=== PATIENT | female | born 1990 | race Two or more races ===

== ENCOUNTER 2016-12-20 02:24 | Emergency (ER) | payer OTHER ==
[~2016-12-20] VITALS: Ht 152.4 cm; Wt 54.4 kg
--- NOTE | 2016-12-20 02:27 | NUR ---
PT WALKED INTO ER C/O "LUPUS FLARE!", C/O JOINT PAIN, RASH/MOUTH BLISTERS X3 DAYS.. PT IS ALERT, ORIENTED X 3, NO RESP DISTRESS NOTED OR REPORTED UPON ASSESSMENT... MD AT BEDSIDE....
[2016-12-20] MEDS ORDERED: MYCO500T PO (02:40)
[2016-12-20] MEDS ORDERED: HYDR200T PO (02:40)
[2016-12-20] MEDS ORDERED: METHOTREXATE 2.5 MG PO (02:40)
[2016-12-20] MEDS ORDERED: PRED20TA PO (02:40)
[2016-12-20] MEDS ORDERED: methylPREDNISolone SOD SUCC 125 MG/2 ML VIAL IV ONE (03:00)
[2016-12-20] MEDS ORDERED: ONDANSETRON 4 MG/2 ML VIAL IV ONE (03:00)
[2016-12-20] MEDS ORDERED: IV NORMAL SALINE 1000 ML BAG IV ONE (03:00)
[2016-12-20] MEDS ORDERED: HYDROMORPHONE 1 MG/1 ML DISP.SYRIN IV ONE (03:00)
[2016-12-20] MEDS ORDERED: ONDANSETRON 4 MG/2 ML VIAL ONE (03:21)
[2016-12-20] MEDS ORDERED: HYDROMORPHONE 1 MG/1 ML DISP.SYRIN ONE (03:21)
[2016-12-20] MEDS ORDERED: methylPREDNISolone SOD SUCC 125 MG/2 ML VIAL ONE (03:22)
--- NOTE | 2016-12-20 04:45 | NUR ---
Patient discharged to home in stable conditon. Written and verbal after care instructions given. Patient verbalizes understanding of instructions. pt walked out of ER unassisted with beloingings at side...
[2016-12-20 05:07] VITALS: BP 121/82
== END 2016-12-20 04:30 | disposition home or self-care (01) ==
LOC: ER 02:29
DX: L51.9 Erythema multiforme, unspecified (principal); F12.10 Cannabis abuse, uncomplicated
CPT/HCPCS: 36415; 84703; 85651; 96361; 96374; 96375; 99284; A4663; J1170; J2405; J2930; J7030

== ENCOUNTER 2016-12-20 21:02 | Inpatient (IN) | payer OTHER ==
[~2016-12-20] VITALS: Ht 152.4 cm; Wt 53.1 kg
[~2016-12-20 21:02] MED LIST: HYDR200T PO; METHOTREXATE 2.5 MG PO; MYCO500T PO; PRED20TA PO
--- NOTE | 2016-12-20 22:25 | NUR ---
Pt to room, pt sts she has lupus and was seen here yesterday for pain and rash. Sts pain and rash have increased. Pt resting in position of comfort for self. Awaiting further eval.
[2016-12-20] MEDS ORDERED: HYDROMORPHONE 1 MG/1 ML DISP.SYRIN IV ONE (23:15)
[2016-12-20] MEDS ORDERED: ONDANSETRON 4 MG/2 ML VIAL IV ONE (23:15)
[2016-12-20] MEDS ORDERED: ONDANSETRON 4 MG/2 ML VIAL ONE (23:35)
[2016-12-20] MEDS ORDERED: HYDROMORPHONE 1 MG/1 ML DISP.SYRIN ONE (23:35)
--- NOTE | 2016-12-20 23:49 | NUR ---
Pt seen by MD. TALAMANTES established, labs drawn and sent. Pt medicated for pain, will monitor for effects of medication. Pt resting in position of comfort for self
[2016-12-20 23:52] LABS: BASOPHILS % (AUTO) 0.1 % (0.0-2.0); EOSINOPHILS % (AUTO) 0.5 % (0.0-7.0); HEMATOCRIT 30.5 % (37-47); HEMOGLOBIN 10.1 G/DL (12.0-16.0); LYMPHOCYTES # (AUTO) 1.1 K/UL (0.8-4.8); LYMPHOCYTES % (AUTO) 36.9 % (20.5-51.5); MEAN CORPUSCULAR HEMOGLOBIN 28.2 UUG (27.0-31.0); MEAN CORPUSCULAR HGB CONC 33 g/dL (32.0-37.0); MEAN CORPUSCULAR VOLUME 85.1 FL (81.0-99.0); MONOCYTES # (AUTO) 0.4 K/UL (0.1-1.30); MONOCYTES % (AUTO) 12.6 % (0.0-11.0); NEUTROPHILS # (AUTO) 1.5 K/UL (1.8-8.9); NEUTROPHILS % (AUTO) 49.9 % (38.5-71.5); PLATELET COUNT (AUTO) 303 K/UL (150-450); RED BLOOD CELL COUNT(AUTO) 3.58 MIL/UL (4.2-5.4)
[2016-12-20 23:58] LABS: CARBON DIOXIDE 25 mmol/L (21-32); CHLORIDE 105 mmol/L (98-107); CREATININE 0.5 mg/dL (0.6-1.3); GLUCOSE 100 mg/dL (74-106); POTASSIUM 3.8 mmol/L (3.5-5.1); UREA NITROGEN, BLOOD 12 mg/dL (7-18)
[2016-12-21 00:04] LABS: ALANINE AMINOTRANSFERASE 21 U/L (14-59); ALKALINE PHOSPHATASE 43 U/L (50-136); ASPARTATE AMINOTRANSFERASE 16 U/L (15-37); BILIRUBIN,DIRECT 0.1 mg/dL (0.0-0.2); BILIRUBIN,TOTAL 0.3 mg/dL (0.2-1.0); TOTAL PROTEIN, SERUM 7.1 g/dL (6.4-8.2)
--- NOTE | 2016-12-21 00:54 | NUR ---
Pt resting in position of comfort for self. Sts pain improved.
[2016-12-21] MEDS ORDERED: methylPREDNISolone SOD SUCC 125 MG/2 ML VIAL IV ONE (01:15)
[2016-12-21] MEDS ORDERED: MAGNESIUM HYDROXIDE 30 ML LIQUID UDC PO PRN (01:30)
[2016-12-21] MEDS ORDERED: ONDANSETRON 4 MG/2 ML VIAL IV PRN (01:30)
[2016-12-21] MEDS ORDERED: ACETAMINOPHEN 325 MG TABLET PO PRN (01:30)
[2016-12-21] MEDS ORDERED: HYDROMORPHONE 1 MG/1 ML DISP.SYRIN IV ONE (01:30)
[2016-12-21] MEDS ORDERED: ONDANSETRON IV *ER 4 MG/2 ML VIAL IV ONE (01:30)
[2016-12-21] MEDS ORDERED: Z GUARD REMEDY PASTE 57 GM TUBE TOP PRN (01:30)
[2016-12-21] MEDS ORDERED: ONDANSETRON 4 MG/2 ML VIAL ONE (01:52)
[2016-12-21] MEDS ORDERED: HYDROMORPHONE 1 MG/1 ML DISP.SYRIN ONE (01:52)
[2016-12-21] MEDS ORDERED: methylPREDNISolone SOD SUCC 125 MG/2 ML VIAL ONE (01:52)
--- NOTE | 2016-12-21 02:28 | NUR ---
Report called to [facility]. Preparing to transfer pt to the floor.
--- NOTE | 2016-12-21 02:45 | NUR ---
RECEIVED PATIENT FROM ER VIA WHEELCHAIR. PT IS ALERT, NO DISTRESS, NO SOB. DX: LUPUS EXACERBATION UNDER THE CARE OF DR. MCBRIDE. ADMISSION PROCESS STARTED, BELONGING LIST DONE. MD ORDERS IN THE SYSTEM. PLAN OF CARE INITIATED. BED ALARM ON, CALL LIGHT WITHIN REACH. WILL CONTINUE TO MONITOR.
[2016-12-21 03:00] VITALS: BP 125/89
[2016-12-21 04:21] VITALS: BP 113/71
--- NOTE | 2016-12-21 06:45 | NUR ---
PATIENT ASLEEP, EASILY AROUSABLE, IN NO ACUTE DISTRESS. WILL CONTINUE TO MONITOR.
--- NOTE | 2016-12-21 08:00 | NUR ---
AWAKE COOPERATE WELL NO SOB STATE PAIN MED HELP TO RELIEF PAIN RESTINT WELL WITH CALL LIGHT IN REACH
[2016-12-21] MEDS: HYDROXYCHLOROQUINE SULFATE 200 MG TABLET PO SCH (08:25)
[2016-12-21] MEDS: HYDROCODONE/APAP 5-325MG TABLET PO PRN ×2 (08:25→12:45)
[2016-12-21] MEDS ORDERED: methylPREDNISolone SOD SUCC 40 MG/ML VIAL IV SCH (09:00)
[2016-12-21] MEDS ORDERED: METHOTREXATE PO SCH (09:00)
[2016-12-21] MEDS ORDERED: Medication Not On Formulary EA (Mycophenolate Mofetil (Cellcept) 500 MG) PO SCH (09:00)
[2016-12-21 10:54] LABS: BASOPHILS % (AUTO) 0.8 % (0.0-2.0); EOSINOPHILS % (AUTO) 0.2 % (0.0-7.0); HEMATOCRIT 31.9 % (37-47); HEMOGLOBIN 10.3 G/DL (12.0-16.0); LYMPHOCYTES # (AUTO) 0.8 K/UL (0.8-4.8); LYMPHOCYTES % (AUTO) 27.9 % (20.5-51.5); MEAN CORPUSCULAR HEMOGLOBIN 27.3 UUG (27.0-31.0); MEAN CORPUSCULAR HGB CONC 32 g/dL (32.0-37.0); MEAN CORPUSCULAR VOLUME 84.4 FL (81.0-99.0); MONOCYTES # (AUTO) 0.1 K/UL (0.1-1.30); MONOCYTES % (AUTO) 3.3 % (0.0-11.0); NEUTROPHILS % (AUTO) 67.8 % (38.5-71.5); PLATELET COUNT (AUTO) 287 K/UL (150-450); RED BLOOD CELL COUNT(AUTO) 3.78 MIL/UL (4.2-5.4); WHITE BLOOD COUNT (AUTO) 2.9 K/UL (4.0-11.2)
[2016-12-21 11:30] LABS: BAND % (MANUAL) 5 % (0-10); LYMPHOCYTES % (MANUAL) 25 % (20-40); MONOCYTES % (MANUAL) 3 % (2-10); NEUTROPHILS % (MANUAL) 67 % (42-75)
[2016-12-21 11:32] LABS: BILIRUBIN,TOTAL 0.4 mg/dL (0.2-1.0); CREATININE 0.7 mg/dL (0.6-1.3); POTASSIUM 4.1 mmol/L (3.5-5.1); TOTAL PROTEIN, SERUM 6.8 g/dL (6.4-8.2)
[2016-12-21 11:35] LABS: THYROID STIMULATING HORMONE 0.064 mIU/mL (0.358-3.740)
[2016-12-21 11:38] LABS: MAGNESIUM 2.2 mg/dL (1.8-2.4)
[2016-12-21] MEDS: MYCOPHENOLATE MOFETIL 250 MG CAPSULE PO SCH ×2 (11:43→18:09)
[2016-12-21] MEDS: METHOTREXATE SODIUM 2.5 MG TABLET PO SCH (11:44)
[2016-12-21] MEDS: methylPREDNISolone SOD SUCC 125 MG/2 ML VIAL IV SCH ×3 (11:46→21:44)
[2016-12-21 11:55] VITALS: BP 123/82
[2016-12-21] MEDS: PANTOPRAZOLE SODIUM 40 MG TABLET.DR PO SCH (11:56)
[2016-12-21] MEDS: IV D5/ 0.9% NACL 1,000 ML IV PRN (12:47)
[2016-12-21] MEDS ORDERED: HYDROMORPHONE 1 MG/1 ML DISP.SYRIN IV PRN (14:00)
[2016-12-21] MEDS: HYDROMORPHONE 1 MG/1 ML DISP.SYRIN IV PRN (15:18)
[2016-12-21 15:38] VITALS: BP 102/61
--- NOTE | 2016-12-21 18:00 | NUR ---
CONDITION STABLE PAIN UNDER CONTROL NO ACUTE DISTRESS SAFETY MEASURE PROVIDED CALL MARISCAL IN REACH
[2016-12-21 18:14] LABS: *URINE TOTAL PROTEIN RANDOM < 6.0 mg/dL (<150/24HR)
[2016-12-21 18:15] LABS: *BILIRUBIN,URIN NEGATIVE (NEGATIVE); *BLOOD, URINE NEGATIVE (NEGATIVE); *CLARITY,URINE CLEAR (CLEAR); *COLOR,URINE YELLOW (YELLOW); *KETONES,URINE NEGATIVE (NEGATIVE); *PROTEIN,URINE NEGATIVE (NEGATIVE); *UROBILINOGEN,URINE 0.2 E.U./dl (NORMAL); LEUKOCYTE ESTERASE ,URINE NEGATIVE (NEGATIVE); NITRITE, URINE NEGATIVE (NEGATIVE); UGLUCOSE NEGATIVE (NEGATIVE)
[2016-12-21 18:29] LABS: SQUAMOUS EPITHELIAL CELL,UR FEW /HPF (NONE SEEN); WBC,URINE NONE SEEN /HPF (0-3)
--- NOTE | 2016-12-21 19:00 | NUR ---
PATIENT IN BED NO SOB NO CHEST PAIN, ON PAIN MANAGEMENT, NO DISTRESS.
[2016-12-21 20:00] VITALS: BP 110/67
[2016-12-22] MEDS: HYDROMORPHONE 1 MG/1 ML DISP.SYRIN IV PRN ×4 (02:30→21:25)
[2016-12-22] MEDS: IV D5/ 0.9% NACL 1,000 ML IV PRN ×3 (02:42→21:14)
[2016-12-22 05:00] VITALS: BP 95/54
[2016-12-22] MEDS: PANTOPRAZOLE SODIUM 40 MG TABLET.DR PO SCH (06:11)
[2016-12-22] MEDS: methylPREDNISolone SOD SUCC 125 MG/2 ML VIAL IV SCH ×3 (06:11→20:57)
--- NOTE | 2016-12-22 06:52 | NUR ---
PATIENT SLEPT MOST OF THE NIGHT, NO SOB NO CHEST PAIN, CONT ON PAIN MANAGEMENT, CONT TO MONITOR.
[2016-12-22 07:46] LABS: EOSINOPHILS % (AUTO) 0.9 % (0.0-7.0); HEMATOCRIT 31.3 % (37-47); HEMOGLOBIN 10.3 G/DL (12.0-16.0); LYMPHOCYTES # (AUTO) 0.9 K/UL (0.8-4.8); LYMPHOCYTES % (AUTO) 20.1 % (20.5-51.5); MEAN CORPUSCULAR HEMOGLOBIN 28.8 UUG (27.0-31.0); MEAN CORPUSCULAR HGB CONC 33 g/dL (32.0-37.0); MEAN CORPUSCULAR VOLUME 87.3 FL (81.0-99.0); MONOCYTES # (AUTO) 0.2 K/UL (0.1-1.30); MONOCYTES % (AUTO) 4.9 % (0.0-11.0); NEUTROPHILS # (AUTO) 3.6 K/UL (1.8-8.9); NEUTROPHILS % (AUTO) 74.1 % (38.5-71.5); PLATELET COUNT (AUTO) 277 K/UL (150-450); RED BLOOD CELL COUNT(AUTO) 3.58 MIL/UL (4.2-5.4)
[2016-12-22 07:48] LABS: WHITE BLOOD COUNT (AUTO) 4.7 K/UL (4.0-11.2)
[2016-12-22 08:00] LABS: CREATININE 0.6 mg/dL (0.6-1.3); MAGNESIUM 2.2 mg/dL (1.8-2.4); POTASSIUM 3.7 mmol/L (3.5-5.1)
[2016-12-22] MEDS: MYCOPHENOLATE MOFETIL 250 MG CAPSULE PO SCH ×2 (08:34→20:57)
[2016-12-22] MEDS: HYDROXYCHLOROQUINE SULFATE 200 MG TABLET PO SCH (08:35)
[2016-12-22] MEDS: METHOTREXATE SODIUM 2.5 MG TABLET PO SCH (08:38)
[2016-12-22 11:26] VITALS: BP 103/53
[2016-12-22 15:31] VITALS: BP 107/65
[2016-12-22 18:11] LABS: ANTI-DNA(DS) AB, QN 45 IU/mL (0-9)
--- NOTE | 2016-12-22 18:27 | NUR ---
PT AWAKE IN BED, IN NO ACUTE DISTRESS. PAIN MANAGED THROUGHOUT SHIFT WITH PAIN MEDICATION. ALL SAFETY AND COMFORT MEASURES MAINTAINED THROUGHOUT SHIFT CALL LIGHT IN REACH, WILL CONTINUE TO MONITOR
[2016-12-22 20:00] VITALS: BP 105/60
[2016-12-22] MEDS: HYDROCODONE/APAP 5-325MG TABLET PO PRN (20:16)
--- NOTE | 2016-12-22 20:40 | NUR ---
PT'S A/A/O X4 DENIED OF PAIN OR ANY DISCOMFORT AT THIS TIME.PT'S ON IVF MD'S ORDER;NO INFILTRATION AT THE IV SITE NOTED.UPDATED THE PLAN OF CARE TO PT;PT VERBALIZED UNDERSTANDING AND COOPERATIVE.KEPT COMFORT.CALL-LIGHT WITHIN REACH.ICE CHIP'S GIVEN TO PT REQUEST.
[2016-12-23] MEDS: HYDROMORPHONE 1 MG/1 ML DISP.SYRIN IV PRN ×3 (03:15→17:57)
[2016-12-23 05:00] VITALS: BP 113/62
--- NOTE | 2016-12-23 06:00 | NUR ---
PT'S COMFORTABLE ON BED AT THIS TIME.PAIN'S CONTROLLED BY MEDICATION MD'S ORDER.PT SLEPT WELL NOTED.NO INFILTRATION AT THE IV SITE,PT TOLERATED WELL WITH TX ORDER NOTED.KEPT COMFORT.CALL-LIGHT WITHIN REACH.
[2016-12-23] MEDS: PANTOPRAZOLE SODIUM 40 MG TABLET.DR PO SCH (06:24)
[2016-12-23 07:15] LABS: EOSINOPHILS # (AUTO) 0.1 K/uL (0.0-0.7); EOSINOPHILS % (AUTO) 0.8 % (0.0-7.0); HEMATOCRIT 31.4 % (37-47); HEMOGLOBIN 10.4 G/DL (12.0-16.0); LYMPHOCYTES # (AUTO) 1.1 K/UL (0.8-4.8); LYMPHOCYTES % (AUTO) 17.2 % (20.5-51.5); MEAN CORPUSCULAR HEMOGLOBIN 28.8 UUG (27.0-31.0); MEAN CORPUSCULAR HGB CONC 33 g/dL (32.0-37.0); MONOCYTES # (AUTO) 0.3 K/UL (0.1-1.30); MONOCYTES % (AUTO) 4.6 % (0.0-11.0); NEUTROPHILS # (AUTO) 4.9 K/UL (1.8-8.9); NEUTROPHILS % (AUTO) 77.4 % (38.5-71.5); PLATELET COUNT (AUTO) 290 K/UL (150-450); WHITE BLOOD COUNT (AUTO) 6.4 K/UL (4.0-11.2)
[2016-12-23 07:38] LABS: ALANINE AMINOTRANSFERASE 16 U/L (14-59); ALKALINE PHOSPHATASE 40 U/L (50-136); ASPARTATE AMINOTRANSFERASE 11 U/L (15-37); BILIRUBIN,TOTAL 0.1 mg/dL (0.2-1.0); CARBON DIOXIDE 26 mmol/L (21-32); CHLORIDE 108 mmol/L (98-107); CREATININE 0.5 mg/dL (0.6-1.3); GLUCOSE 113 mg/dL (74-106); MAGNESIUM 2.2 mg/dL (1.8-2.4); PHOSPHOROUS 3.9 mg/dL (2.5-4.9); POTASSIUM 3.7 mmol/L (3.5-5.1); TOTAL PROTEIN, SERUM 6.1 g/dL (6.4-8.2); UREA NITROGEN, BLOOD 12 mg/dL (7-18)
[2016-12-23] MEDS: IV D5/ 0.9% NACL 1,000 ML IV PRN (08:43)
[2016-12-23] MEDS: MYCOPHENOLATE MOFETIL 250 MG CAPSULE PO SCH (09:23)
[2016-12-23] MEDS: methylPREDNISolone SOD SUCC 125 MG/2 ML VIAL IV SCH (09:23)
[2016-12-23] MEDS: HYDROXYCHLOROQUINE SULFATE 200 MG TABLET PO SCH (09:25)
[2016-12-23] MEDS: METHOTREXATE SODIUM 2.5 MG TABLET PO SCH (09:25)
[2016-12-23] MEDS ORDERED: HYDROMORPHONE 1 MG/1 ML DISP.SYRIN IV ONE (11:30)
[2016-12-23 11:54] VITALS: BP 114/73
[2016-12-23 15:46] VITALS: BP 108/68
[2016-12-23] MEDS ORDERED: PRED50TA PO (16:55)
[2016-12-23] MEDS ORDERED: HYDR-3326 PO (16:55)
[2016-12-23] MEDS ORDERED: MYCO250C PO (16:55)
[2016-12-23] MEDS ORDERED: FERR325T28 PO (16:55)
--- NOTE | 2016-12-23 18:55 | NUR ---
Patient discharged from unit with family. Photos taken of hands and left ear. No noted distress. Denies pain. Discharge instructions given to patient. Patient understands plan of care. IV removed. Prescriptions given.
[2016-12-23] MEDS ORDERED: FERROUS SULFATE 325 MG TABEC PO SCH (21:00)
== END 2016-12-23 18:55 | disposition home or self-care (01) | DRG 346 ==
LOC: ER 21:04 → MED 12-21 02:20
PROVIDERS: ADMIT Family Medicine; ATTEND Family Medicine
DX: M32.9 Systemic lupus erythematosus, unspecified (principal); D61.818 Other pancytopenia; E88.09 Other disorders of plasma-protein metabolism, not elsewhere classified; F17.210 Nicotine dependence, cigarettes, uncomplicated; L51.8 Other erythema multiforme; D50.9 Iron deficiency anemia, unspecified; G43.909 Migraine, unspecified, not intractable, without status migrainosus; E78.5 Hyperlipidemia, unspecified; R73.9 Hyperglycemia, unspecified; Z98.890 Other specified postprocedural states; D63.8 Anemia in other chronic diseases classified elsewhere; D72.818 Other decreased white blood cell count
CPT/HCPCS: 36415; 70030-TC; 71010; 71020; 82746; 83550; 83735; 84100; 84156; 84443; 84481; 84703; 85025; 85651; 85730; 86160; 86162; 86225; 87086; 93005; J1170; J2405; J2930; J7042; J7517; J8610

== ENCOUNTER 2017-02-05 23:31 | Emergency (ER) | payer OTHER ==
[~2017-02-05] VITALS: Ht 152.4 cm; Wt 54.4 kg
[~2017-02-05 23:31] MED LIST changes: +FERR325T28 PO; +HYDR-3326 PO; +MYCO250C PO; -MYCO500T PO; -PRED20TA PO; +PRED50TA PO
[2017-02-06] MEDS ORDERED: ONDANSETRON 4 MG/2 ML VIAL IV ONE (01:00)
[2017-02-06] MEDS ORDERED: IV NORMAL SALINE 1000 ML BAG IV ONE (01:00)
[2017-02-06] MEDS ORDERED: HYDROMORPHONE 1 MG/1 ML DISP.SYRIN IV ONE ×2 (01:00→03:15)
[2017-02-06] MEDS ORDERED: HYDROMORPHONE 1 MG/1 ML DISP.SYRIN ONE ×2 (01:17→03:26)
[2017-02-06] MEDS ORDERED: ONDANSETRON 4 MG/2 ML VIAL ONE (01:17)
[2017-02-06 01:21] LABS: BASOPHILS # (AUTO) 0.1 K/uL (0.0-8.0); BASOPHILS % (AUTO) 0.8 % (0.0-2.0); EOSINOPHILS % (AUTO) 0.2 % (0.0-7.0); HEMATOCRIT 36.6 % (37-47); HEMOGLOBIN 12.3 G/DL (12.0-16.0); LYMPHOCYTES # (AUTO) 1.8 K/UL (0.8-4.8); LYMPHOCYTES % (AUTO) 25.9 % (20.5-51.5); MEAN CORPUSCULAR HEMOGLOBIN 29.8 UUG (27.0-31.0); MEAN CORPUSCULAR HGB CONC 34 g/dL (32.0-37.0); MEAN CORPUSCULAR VOLUME 88.7 FL (81.0-99.0); MONOCYTES # (AUTO) 0.4 K/UL (0.1-1.30); MONOCYTES % (AUTO) 5.7 % (0.0-11.0); NEUTROPHILS # (AUTO) 4.6 K/UL (1.8-8.9); NEUTROPHILS % (AUTO) 67.4 % (38.5-71.5); PLATELET COUNT (AUTO) 340 K/UL (150-450); RED BLOOD CELL COUNT(AUTO) 4.13 MIL/UL (4.2-5.4); WHITE BLOOD COUNT (AUTO) 6.9 K/UL (4.0-11.2)
[2017-02-06 01:24] LABS: *BILIRUBIN,URIN NEGATIVE (NEGATIVE); *BLOOD, URINE NEGATIVE (NEGATIVE); *CLARITY,URINE CLEAR (CLEAR); *COLOR,URINE YELLOW (YELLOW); *KETONES,URINE NEGATIVE (NEGATIVE); *PROTEIN,URINE NEGATIVE (NEGATIVE); *UROBILINOGEN,URINE 0.2 E.U./dl (NORMAL); LEUKOCYTE ESTERASE ,URINE NEGATIVE (NEGATIVE); NITRITE, URINE NEGATIVE (NEGATIVE); UGLUCOSE NEGATIVE (NEGATIVE)
[2017-02-06 01:35] LABS: BACTERIA,URINE NONE SEEN /HPF (NONE SEEN); RBC,URINE 0-3 /HPF (0-3); SQUAMOUS EPITHELIAL CELL,UR FEW /HPF (NONE SEEN); WBC,URINE 0-3 /HPF (0-3)
[2017-02-06 01:35] LABS: BILIRUBIN,DIRECT 0.3 mg/dL (0.0-0.2); BILIRUBIN,TOTAL 0.3 mg/dL (0.2-1.0); CREATININE 0.6 mg/dL (0.6-1.3); POTASSIUM 3.5 mmol/L (3.5-5.1); TOTAL PROTEIN, SERUM 6.9 g/dL (6.4-8.2)
[2017-02-06] MEDS ORDERED: methylPREDNISolone SOD SUCC 125 MG/2 ML VIAL IV ONE (02:00)
[2017-02-06] MEDS ORDERED: methylPREDNISolone SOD SUCC 125 MG/2 ML VIAL ONE (02:12)
--- NOTE | 2017-02-06 03:16 | NUR ---
Patient discharged to home in stable conditon. Written and verbal after care instructions given. Patient verbalizes understanding of instructions. Ambulated from ER with stable gait. Peripheral IV removed prior to discharge. Patient awake, alert, oriented x 4. Will be driven home by significant other in private vehicle. All belongings with patient. Patient educated to refrain from using heavy machinery or driving a vehicle due to recent opiate intake. Patient agreed to comply.
[2017-02-06 03:19] VITALS: BP 121/70
== END 2017-02-06 03:19 | disposition home or self-care (01) ==
LOC: ER 23:32
DX: M32.9 Systemic lupus erythematosus, unspecified (principal); J84.89 Other specified interstitial pulmonary diseases
CPT/HCPCS: 36415; 70030-TC; 71010; 83605; 84703; 85025; 85730; 87040; 87086; A4663; J1170; J2405; J2930; J7030

== ENCOUNTER 2017-03-27 07:30 | Emergency (ER) | payer OTHER ==
[~2017-03-27] VITALS: Ht 152.4 cm; Wt 54.4 kg
[2017-03-27] MEDS ORDERED: PRED50TA PO (07:44)
[2017-03-27] MEDS ORDERED: PROCHLORPERAZINE EDISYLATE 10 MG/2 ML VIAL IV ONE (08:15)
[2017-03-27] MEDS ORDERED: IV NORMAL SALINE 1000 ML BAG IV ONE (08:15)
[2017-03-27 08:41] LABS: *BILIRUBIN,URIN NEGATIVE (NEGATIVE); *BLOOD, URINE Trace-intact (NEGATIVE); *CLARITY,URINE CLEAR (CLEAR); *COLOR,URINE YELLOW (YELLOW); *KETONES,URINE NEGATIVE (NEGATIVE); *PROTEIN,URINE NEGATIVE (NEGATIVE); *UROBILINOGEN,URINE 0.2 E.U./dl (NORMAL); LEUKOCYTE ESTERASE ,URINE 1+ (NEGATIVE); NITRITE, URINE NEGATIVE (NEGATIVE); UGLUCOSE NEGATIVE (NEGATIVE)
[2017-03-27 08:42] LABS: BASOPHILS % (AUTO) 0.6 % (0.0-2.0); EOSINOPHILS % (AUTO) 0.5 % (0.0-7.0); HEMATOCRIT 35.4 % (37-47); HEMOGLOBIN 11.5 G/DL (12.0-16.0); LYMPHOCYTES # (AUTO) 1.7 K/UL (0.8-4.8); LYMPHOCYTES % (AUTO) 25.9 % (20.5-51.5); MEAN CORPUSCULAR HEMOGLOBIN 29.6 UUG (27.0-31.0); MEAN CORPUSCULAR HGB CONC 33 g/dL (32.0-37.0); MEAN CORPUSCULAR VOLUME 90.9 FL (81.0-99.0); MONOCYTES # (AUTO) 0.5 K/UL (0.1-1.30); MONOCYTES % (AUTO) 7.7 % (0.0-11.0); NEUTROPHILS # (AUTO) 4.4 K/UL (1.8-8.9); NEUTROPHILS % (AUTO) 65.3 % (38.5-71.5); PLATELET COUNT (AUTO) 395 K/UL (150-450); WHITE BLOOD COUNT (AUTO) 6.6 K/UL (4.0-11.2)
--- NOTE | 2017-03-27 08:47 | NUR ---
PATIENT WAS SEEN BY MD FOR C/U GENRALIZE PAINS AND HEADACHE. IV PLACED, MEDS GIVEN ORDERED. URINE AND BLOOD SENT TO LAB.
[2017-03-27] MEDS ORDERED: PROCHLORPERAZINE EDISYLATE 10 MG/2 ML VIAL ONE (08:49)
[2017-03-27 08:54] LABS: CREATININE 0.6 mg/dL (0.6-1.3); POTASSIUM 3.7 mmol/L (3.5-5.1)
[2017-03-27 08:56] LABS: BACTERIA,URINE FEW /HPF (NONE SEEN); RBC,URINE 0-3 /HPF (0-3); SQUAMOUS EPITHELIAL CELL,UR MODERATE /HPF (NONE SEEN)
[2017-03-27 09:00] LABS: BILIRUBIN,DIRECT 0.1 mg/dL (0.0-0.2); BILIRUBIN,TOTAL 0.5 mg/dL (0.2-1.0); TOTAL PROTEIN, SERUM 6.5 g/dL (6.4-8.2)
[2017-03-27 09:07] LABS: THYROID STIMULATING HORMONE 0.286 mIU/mL (0.358-3.740)
[2017-03-27] MEDS ORDERED: methylPREDNISolone SOD SUCC 125 MG/2 ML VIAL IV ONE (09:45)
--- NOTE | 2017-03-27 09:55 | NUR ---
PATIENT STATES PAIN HAS DIMINISHED SOME.
[2017-03-27] MEDS ORDERED: methylPREDNISolone SOD SUCC 125 MG/2 ML VIAL ONE (10:14)
--- NOTE | 2017-03-27 10:20 | NUR ---
IV DC'D, CATHETER TIP INTACT, PRESURE APPLIED, DRESSING APPLIED. DC AND FOLLOW UP INSTRUCTIONS GIVEN AND EXPLAINED TO PATIENT WHO STATES SHE UNDERSTANDS ALL INSTRUCTIONS.
== END 2017-03-27 10:29 | disposition home or self-care (01) ==
LOC: ER 07:30
DX: M32.9 Systemic lupus erythematosus, unspecified (principal); M25.532 Pain in left wrist; M25.531 Pain in right wrist
CPT/HCPCS: 36415; 73110; 82533; 83690; 84443; 84703; 85025; 85730; 86140; A4663; J0780; J2930; J3490; J7030

== ENCOUNTER 2017-04-10 12:52 | Emergency (ER) | payer OTHER ==
[~2017-04-10] VITALS: Ht 152.4 cm; Wt 59.0 kg
[~2017-04-10 12:52] MED LIST changes: -FERR325T28 PO; -HYDR-3326 PO
--- NOTE | 2017-04-10 13:27 | NUR ---
Pt c/o migraine WREN, 03/11, w/dizziness and nausea, sensitive to light and sound. Pt states she feels like fainting if she is up doing any kind of work. Hx of Lupus, unkown extent of connection. Pt denies CP, SOB, no other complaints, minor distress noted.
[2017-04-10] MEDS ORDERED: methylPREDNISolone SOD SUCC 125 MG/2 ML VIAL IV ONE (14:15)
[2017-04-10] MEDS ORDERED: KETOROLAC TROMETHAMINE 15 MG INJ IV ONE (14:15)
[2017-04-10] MEDS ORDERED: IV NORMAL SALINE 1000 ML BAG IV ONE (14:15)
[2017-04-10] MEDS ORDERED: METOCLOPRAMIDE HCL 10 MG/2 ML VIAL IV ONE (14:15)
[2017-04-10 14:34] LABS: BASOPHILS % (AUTO) 0.4 % (0.0-2.0); EOSINOPHILS % (AUTO) 0.4 % (0.0-7.0); HEMATOCRIT 34.8 % (31.2-41.9); HEMOGLOBIN 11.8 g/dL (10.9-14.3); LYMPHOCYTES # (AUTO) 1.9 K/uL (20.0-40.0); LYMPHOCYTES % (AUTO) 25.1 % (20.5-51.5); MEAN CORPUSCULAR HEMOGLOBIN 30.8 uug (24.7-32.8); MEAN CORPUSCULAR HGB CONC 34 g/dL (32.3-35.6); MEAN CORPUSCULAR VOLUME 90.4 fL (75.5-95.3); MONOCYTES # (AUTO) 0.5 K/uL (2.0-10.0); MONOCYTES % (AUTO) 7.2 % (0.0-11.0); NEUTROPHILS % (AUTO) 66.9 % (38.5-71.5); PLATELET COUNT (AUTO) 290 K/uL (179-408); RED BLOOD CELL COUNT(AUTO) 3.85 MIL/uL (3.63-4.92); WHITE BLOOD COUNT (AUTO) 7.5 K/uL (3.8-11.8)
[2017-04-10] MEDS ORDERED: IOHEXOL 300MG/ML 100 ML INFUS..BTL ONE (14:39)
[2017-04-10] MEDS ORDERED: IV NORMAL SALINE 250 ML IV ONE (14:39)
[2017-04-10 14:42] LABS: CREATININE 0.7 mg/dL (0.6-1.3); POTASSIUM 3.3 mmol/L (3.5-5.1)
[2017-04-10 14:48] LABS: BILIRUBIN,DIRECT 0.1 mg/dL (0.0-0.2); BILIRUBIN,TOTAL 0.5 mg/dL (0.2-1.0); TOTAL PROTEIN, SERUM 6.6 g/dL (6.4-8.2)
[2017-04-10] MEDS ORDERED: methylPREDNISolone SOD SUCC 125 MG/2 ML VIAL ONE (15:14)
[2017-04-10] MEDS ORDERED: KETOROLAC TROMETHAMINE 15 MG INJ ONE (15:14)
[2017-04-10] MEDS ORDERED: METOCLOPRAMIDE HCL 10 MG/2 ML VIAL ONE (15:14)
--- NOTE | 2017-04-10 16:45 | NUR ---
Pt apparently eloped w/o notice -- still had IV saline lock in-place.
== END 2017-04-10 16:40 | disposition left against medical advice (07) ==
LOC: ER 12:52
DX: R51 Headache (principal); I77.6 Arteritis, unspecified; M32.9 Systemic lupus erythematosus, unspecified
CPT/HCPCS: 36415; 83605; 83690; 84703; 85025; 87040; A4663; J1885; J2765; J2930; J7030; J7050; Q9967

== ENCOUNTER 2017-05-03 14:27 | Emergency (ER) | payer OTHER ==
[~2017-05-03] VITALS: Ht 152.4 cm; Wt 53.1 kg
[2017-05-03] MEDS ORDERED: ONDANSETRON 4 MG/2 ML VIAL IV ONE (15:30)
[2017-05-03] MEDS ORDERED: HYDROMORPHONE 1 MG/1 ML DISP.SYRIN IV ONE ×2 (15:30→17:45)
[2017-05-03] MEDS ORDERED: IV NORMAL SALINE 1000 ML BAG IV ONE (15:30)
[2017-05-03 15:48] LABS: BASOPHILS % (AUTO) 0.3 % (0.0-2.0); EOSINOPHILS % (AUTO) 0.1 % (0.0-7.0); HEMATOCRIT 35.3 % (37-47); HEMOGLOBIN 11.9 G/DL (12.0-16.0); LYMPHOCYTES # (AUTO) 1.7 K/UL (0.8-4.8); LYMPHOCYTES % (AUTO) 11.8 % (20.5-51.5); MEAN CORPUSCULAR HEMOGLOBIN 30.6 UUG (27.0-31.0); MEAN CORPUSCULAR HGB CONC 34 g/dL (32.0-37.0); MEAN CORPUSCULAR VOLUME 90.5 FL (81.0-99.0); MONOCYTES # (AUTO) 0.2 K/UL (0.1-1.30); MONOCYTES % (AUTO) 1.2 % (0.0-11.0); NEUTROPHILS # (AUTO) 12.5 K/UL (1.8-8.9); NEUTROPHILS % (AUTO) 86.6 % (38.5-71.5); PLATELET COUNT (AUTO) 311 K/UL (150-450); RED BLOOD CELL COUNT(AUTO) 3.91 MIL/UL (4.2-5.4); WHITE BLOOD COUNT (AUTO) 14.4 K/UL (4.0-11.2)
[2017-05-03 15:54] LABS: CREATININE 0.8 mg/dL (0.6-1.3); POTASSIUM 3.2 mmol/L (3.5-5.1)
--- NOTE | 2017-05-03 16:02 | NUR ---
Received ALOX4 with pt c/o of rash on face that is noted around nose and mouth and c/o joint pain as well. Pt states that she has donna and is in flar-up at this time.
--- NOTE | 2017-05-03 16:04 | NUR ---
Medications given tolerated well no adverse reaction noted at this time. Pt states that she take Solu-medrol at home 70mg ER MD informed of this.
[2017-05-03 16:08] LABS: BILIRUBIN,DIRECT 0.1 mg/dL (0.0-0.2); BILIRUBIN,TOTAL 0.4 mg/dL (0.2-1.0); TOTAL PROTEIN, SERUM 6.6 g/dL (6.4-8.2)
[2017-05-03] MEDS ORDERED: ONDANSETRON 4 MG/2 ML VIAL ONE (16:11)
[2017-05-03] MEDS ORDERED: HYDROMORPHONE 1 MG/1 ML DISP.SYRIN ONE ×2 (16:11→17:54)
[2017-05-03] MEDS ORDERED: methylPREDNISolone SOD SUCC 125 MG/2 ML VIAL IV ONE (16:15)
--- NOTE | 2017-05-03 16:17 | NUR ---
Medication given tolerated well no adverse reaction. SEE MAR.
[2017-05-03] MEDS ORDERED: methylPREDNISolone SOD SUCC 125 MG/2 ML VIAL ONE (16:26)
[2017-05-03 16:32] LABS: BAND % (MANUAL) 7 % (0-10); LYMPHOCYTES % (MANUAL) 15 % (20-40); MONOCYTES % (MANUAL) 2 % (2-10); NEUTROPHILS % (MANUAL) 76 % (42-75)
[2017-05-03 16:45] LABS: *BILIRUBIN,URIN NEGATIVE (NEGATIVE); *BLOOD, URINE 1+ (NEGATIVE); *CLARITY,URINE CLEAR (CLEAR); *COLOR,URINE YELLOW (YELLOW); *KETONES,URINE NEGATIVE (NEGATIVE); *PROTEIN,URINE NEGATIVE (NEGATIVE); *UROBILINOGEN,URINE 0.2 E.U./dl (NORMAL); LEUKOCYTE ESTERASE ,URINE 1+ (NEGATIVE); NITRITE, URINE NEGATIVE (NEGATIVE); PH,URINE 7.5 (5.0-8.0); UGLUCOSE NEGATIVE (NEGATIVE)
[2017-05-03 17:07] LABS: BACTERIA,URINE MODERATE /HPF (NONE SEEN); SQUAMOUS EPITHELIAL CELL,UR FEW /HPF (NONE SEEN)
[2017-05-03 18:00] VITALS: BP 122/70
--- NOTE | 2017-05-03 18:01 | NUR ---
Home with [facility] and review rx with pt as well pt states that she understands.
== END 2017-05-03 18:01 | disposition home or self-care (01) ==
LOC: ER 14:29
DX: M32.9 Systemic lupus erythematosus, unspecified (principal)
CPT/HCPCS: 36415; 71010; 80048; 80076; 81001; 83605; 83880; 84484; 84703; 85025; 85730; 87040 ×2; 87077; 87086; 87186; 93005; 96361; 96374; 96375; 96376; 99285; A4663; J1170 ×2; J2405; J2930; J7030; 70030-TC

== ENCOUNTER 2017-05-21 21:46 | Inpatient (IN) | payer OTHER ==
[~2017-05-21] VITALS: Ht 152.4 cm; Wt 57.2 kg
--- NOTE | 2017-05-21 22:30 | NUR ---
PATIENT WALKED INTO ER C/O N/V ,DIARRHEA AND ABDOMINAL PAIN THAT STARTED THIS AM
[2017-05-21] MEDS ORDERED: VANCOMYCIN IV 1,000 MG in IV DEXTROSE 5% 250 ML IV ONE (23:00)
[2017-05-21] MEDS ORDERED: CEFEPIME HCL 1 G in IV DEXTROSE 5% 50 ML IV ONE (23:00)
[2017-05-21] MEDS ORDERED: METRONIDAZOLE 500 MG/NS 100ML 100 ML IV ONE ×2 (23:00→23:36)
[2017-05-21] MEDS ORDERED: HYDROMORPHONE 1 MG/1 ML DISP.SYRIN IV ONE (23:00)
[2017-05-21] MEDS ORDERED: ONDANSETRON 4 MG/2 ML VIAL IV ONE (23:00)
[2017-05-21 23:24] LABS: BASOPHILS # (AUTO) 0.1 K/uL (0.0-8.0); EOSINOPHILS % (AUTO) 0.2 % (0.0-7.0); HEMATOCRIT 39.6 % (37-47); LYMPHOCYTES # (AUTO) 0.9 K/UL (0.8-4.8); MEAN CORPUSCULAR HEMOGLOBIN 29.5 UUG (27.0-31.0); MEAN CORPUSCULAR HGB CONC 33 g/dL (32.0-37.0); MEAN CORPUSCULAR VOLUME 89.5 FL (81.0-99.0); MONOCYTES # (AUTO) 0.3 K/UL (0.1-1.30); MONOCYTES % (AUTO) 4.2 % (0.0-11.0); NEUTROPHILS # (AUTO) 6.1 K/UL (1.8-8.9); NEUTROPHILS % (AUTO) 81.6 % (38.5-71.5); PLATELET COUNT (AUTO) 272 K/UL (150-450); RED BLOOD CELL COUNT(AUTO) 4.42 MIL/UL (4.2-5.4); WHITE BLOOD COUNT (AUTO) 7.4 K/UL (4.0-11.2)
[2017-05-21 23:34] LABS: CREATININE 0.6 mg/dL (0.6-1.3); POTASSIUM 3.3 mmol/L (3.5-5.1)
[2017-05-21] MEDS ORDERED: CEFEPIME HCL 1 G VIAL ONE (23:36)
[2017-05-21] MEDS ORDERED: HYDROMORPHONE 2 MG/1 ML DISP.SYRIN ONE (23:36)
[2017-05-21] MEDS ORDERED: ONDANSETRON 4 MG/2 ML VIAL ONE (23:36)
[2017-05-21] MEDS ORDERED: VANCOMYCIN IV 200 ML ONE (23:36)
[2017-05-21 23:37] LABS: *BILIRUBIN,URIN NEGATIVE (NEGATIVE); *BLOOD, URINE NEGATIVE (NEGATIVE); *CLARITY,URINE CLEAR (CLEAR); *COLOR,URINE YELLOW (YELLOW); *KETONES,URINE NEGATIVE (NEGATIVE); *PROTEIN,URINE NEGATIVE (NEGATIVE); *UROBILINOGEN,URINE 0.2 E.U./dl (NORMAL); LEUKOCYTE ESTERASE ,URINE TRACE (NEGATIVE); NITRITE, URINE NEGATIVE (NEGATIVE); PH,URINE 7.5 (5.0-8.0); UGLUCOSE NEGATIVE (NEGATIVE)
[2017-05-21 23:40] LABS: BILIRUBIN,DIRECT 0.2 mg/dL (0.0-0.2); BILIRUBIN,TOTAL 0.7 mg/dL (0.2-1.0); TOTAL PROTEIN, SERUM 6.4 g/dL (6.4-8.2)
[2017-05-21 23:45] LABS: BACTERIA,URINE NONE SEEN /HPF (NONE SEEN); RBC,URINE NONE SEEN /HPF (0-3); RENAL EPITHELIAL CELLS,URINE FEW /LPF (NONE SEEN); SQUAMOUS EPITHELIAL CELL,UR MODERATE /HPF (NONE SEEN)
[2017-05-21 23:46] LABS: MUCUS,URINE FEW /LPF (0-FEW)
--- NOTE | 2017-05-22 00:02 | NUR ---
Elaina paged for Dr. Lopez
--- NOTE | 2017-05-22 00:47 | NUR ---
DR KELLY VILLATORO CALLED BACK. DR WHITE SPEAKING WITH YOSSI HUMPHREY
[2017-05-22] MEDS ORDERED: HYDROMORPHONE 1 MG/1 ML DISP.SYRIN IV STA (01:21)
[2017-05-22] MEDS ORDERED: IV NS 1000 ML 1,000 ML IV PRN (01:23)
[2017-05-22] MEDS ORDERED: HYDROCODONE/APAP 5-325MG TABLET PO PRN (01:30)
[2017-05-22] MEDS ORDERED: MAGNESIUM HYDROXIDE 30 ML LIQUID UDC PO PRN (01:30)
[2017-05-22] MEDS ORDERED: ZOLPIDEM 5 MG TABLET PO PRN (01:30)
[2017-05-22] MEDS ORDERED: HYDROMORPHONE 1 MG/1 ML DISP.SYRIN IV PRN (01:30)
[2017-05-22] MEDS ORDERED: ACETAMINOPHEN 325 MG TABLET PO PRN (01:30)
[2017-05-22] MEDS ORDERED: CEFTRIAXONE 1 G in IV DEXTROSE 5% 50 ML IV SCH (01:30)
[2017-05-22] MEDS ORDERED: POTASSIUM CHLORIDE 20 MEQ TAB.PRT.SR PO ONE (01:30)
[2017-05-22] MEDS ORDERED: Z GUARD REMEDY PASTE 57 GM TUBE TOP PRN (01:30)
--- NOTE | 2017-05-22 01:35 | NUR ---
TRANSFERED TO 2ND FLOOR TELE VIA KIKI
[2017-05-22] MEDS ORDERED: HYDROMORPHONE 2 MG/1 ML DISP.SYRIN ONE (01:43)
--- NOTE | 2017-05-22 01:45 | NUR ---
ADMITTED PATIENT IN TELE UNIT UNDER THE CARE ALO KHAN, BELONGING LIST DONE.
[2017-05-22 01:49] VITALS: BP 123/55
[2017-05-22] MEDS ORDERED: CEFTRIAXONE 1 G VIAL ONE (02:36)
[2017-05-22] MEDS ORDERED: METRONIDAZOLE 500 MG/NS 100ML 100 ML IV ONE (02:36)
[2017-05-22] MEDS: IV NS 1000 ML 1,000 ML IV PRN ×3 (02:49→18:53)
[2017-05-22] MEDS ORDERED: HYDROMORPHONE 1 MG/1 ML DISP.SYRIN ONE (03:32)
[2017-05-22 04:57] VITALS: BP 101/56
[2017-05-22] MEDS: METRONIDAZOLE 500 MG/NS 100ML 500 MG in PREMIXED 1 EACH IV SCH ×3 (05:21→22:05)
--- NOTE | 2017-05-22 05:30 | NUR ---
PATIENT SLEPT ON AND OFF, TELE SINUS RHYTHM AT THIS TIME, CONT ON PAIN MANAGEMENT, NO FURTHER DIARRHEA NOTED, AT THIS TIME, INSTRUCTED PATIENT THAT WE NEED STOOL AND URINE, WHENEVER POSSIBLE, CONT TO MONITOR.
[2017-05-22] MEDS: ONDANSETRON 4 MG/2 ML VIAL IV PRN ×2 (07:47→16:59)
--- NOTE | 2017-05-22 07:55 | NUR ---
RECEIVED PATIENT IN ROOM CRYING STATED SHE HAS HEADACHE AND NAUSEA AT THE SAME TIME PATIENT STATED THAT SHE HAS A HISTORY OF MIGRAINE.GIOVANNA GIVEN FOR THE NAUSEA COLD COMPRESS APPLIED TO HER FORE HAED AND DR BUTLER CALLED AND NOTIFIED WITH NEW ORDERS AND NOTED.
[2017-05-22] MEDS ORDERED: KETOROLAC TROMETHAMINE 15 MG INJ IVP PRN (08:00)
[2017-05-22] MEDS ORDERED: KETOROLAC TROMETHAMINE 30 MG INJ IVP PRN ×2 (08:15→09:15)
[2017-05-22] MEDS ORDERED: METHOTREXATE PO SCH (09:00)
[2017-05-22] MEDS ORDERED: MYCOPHENOLATE MOFETIL 250 MG CAPSULE PO ONE (09:15)
[2017-05-22] MEDS: METHOTREXATE SODIUM 2.5 MG TABLET PO SCH (09:42)
[2017-05-22] MEDS: HYDROXYCHLOROQUINE SULFATE 200 MG TABLET PO SCH (09:42)
[2017-05-22] MEDS: predniSONE 50 MG TABLET PO SCH (09:42)
--- NOTE | 2017-05-22 09:50 | NUR ---
PATIENT IS RESTING IN HER BED AT THE MOMENT STATED THAT THE TORADOL AND THE ZOFRAN HELPED HER AND WILL CONTINUE TO OBSERVE REMAIN ON IVF ORDERED NO DIARRHEA EPISODES AT THE MOMENT WAITING FOR HER TO HAVE A BOWEL MOVEMENT AND PROVIDE US WITH SPECIMEN.
[2017-05-22 11:12] VITALS: BP 111/70
[2017-05-22] MEDS ORDERED: HYDROMORPHONE 2 MG/1 ML DISP.SYRIN IV PRN (12:30)
--- NOTE | 2017-05-22 12:42 | NUR ---
Clinical pharmacy note-Vancomycin per pharmacy Subjective: To start Vancomycin dosing on this patient for suspected infection (fever) Objective: BUN 9 (05/21) Scr 0.6 (05/21) WBc 7.5 ( Temp 99.4 ht 5' wt 126 lbs Assessment/Plan: Patient had Vancomycin 1 gram IVPB this am 0100. Will start Vancomycin 750mg IVPB every 14hrs for predicted vanco trough level of 15 mcg/ml. 2nd dose is due today at 1500. Plan to draw trough by 4th dose(not ordered yet). Will monitor renal function & adjust the dose if needed. Will monitor daily.
--- NOTE | 2017-05-22 14:03 | NUR ---
PATIENT IS MORE CHEERFUL WITH HER PAIN MANAGEMENT AT THE MOMENT REMAIN ON IV ANTIBIOTICS ORDERED WITH NO ADVERSE OR ALLERGIC REACTIONS AT THIS TIME PATIENT IS CURRENTLY ON CONTACT ISOLATION PENDING STOOL FOR C DIFF.PATIENT HAS NOT HAD A BOWEL MOVEMENT SINCE ADMISSION AND SHE IS AWARE THAT WE NEED A STOOL SPECIMEN WHEN SHE HAS A BOWEL MOVEMENT.
[2017-05-22] MEDS: VANCOMYCIN IV 1 G in PREMIXED 0 EACH IV SCH (15:24)
[2017-05-22 15:42] VITALS: BP 113/68
[2017-05-22] MEDS: HYDROMORPHONE 2 MG/1 ML DISP.SYRIN IV PRN ×2 (17:02→21:51)
--- NOTE | 2017-05-22 18:10 | NUR ---
PATIENT IS RESTING WITH HER BOY FRIEND AT THE BEDSIDE MORE COMFORTABLE AND CHEERFUL WITH IVF AND IV ANTIBIOTICS ORDERED AND TOLERATING WELL WITH NO ADVERSE OR ALLERGIC REACTIONS AT THIS TIME REMAIN ON CONTACT ISOLATION PENDING C DIFF RESULT PATIENT AWARE AND EDUCATED AND SHE EXPRESSED UNDERSTANDING.
[2017-05-22 20:52] VITALS: BP 114/65
[2017-05-22] MEDS ORDERED: DOCUSATE SODIUM 100 MG CAPSULE PO SCH (21:00)
[2017-05-22] MEDS: MYCOPHENOLATE MOFETIL 250 MG CAPSULE PO SCH (21:28)
--- NOTE | 2017-05-22 21:51 | NUR ---
PRN dilaudid iv given for head/stomach pain 02/08
--- NOTE | 2017-05-22 22:00 | NUR ---
received to care, awake, and lying in bed, pleasant upon approach. remains on contact isolation for c diff. pt is aware and compliant with precautions. currently watching tv. no distress noted. call light in reach.
--- NOTE | 2017-05-22 23:00 | NUR ---
states good pain relief, 08/11.
--- NOTE | 2017-05-22 23:30 | NUR ---
appears to be asleep. no distress noted.
[2017-05-23] MEDS: ONDANSETRON 4 MG/2 ML VIAL IV PRN ×2 (00:47→17:24)
--- NOTE | 2017-05-23 00:47 | NUR ---
PRN zofran, given, for nausea.
[2017-05-23] MEDS: HYDROMORPHONE 2 MG/1 ML DISP.SYRIN IV PRN ×4 (01:58→18:13)
[2017-05-23] MEDS: IV NS 1000 ML 1,000 ML IV PRN (02:08)
[2017-05-23] MEDS ORDERED: CEFTRIAXONE 1 G in IV DEXTROSE 5% 50 ML IV SCH (03:00)
[2017-05-23 04:43] VITALS: BP 116/61
[2017-05-23] MEDS: VANCOMYCIN IV 1 G in PREMIXED 0 EACH IV SCH (04:51)
[2017-05-23 06:13] LABS: BASOPHILS % (AUTO) 0.3 % (0.0-2.0); EOSINOPHILS % (AUTO) 0.4 % (0.0-7.0); HEMATOCRIT 33.1 % (37-47); HEMOGLOBIN 10.8 G/DL (12.0-16.0); LYMPHOCYTES # (AUTO) 1.1 K/UL (0.8-4.8); LYMPHOCYTES % (AUTO) 24.8 % (20.5-51.5); MEAN CORPUSCULAR HEMOGLOBIN 29.6 UUG (27.0-31.0); MEAN CORPUSCULAR HGB CONC 33 g/dL (32.0-37.0); MONOCYTES # (AUTO) 0.3 K/UL (0.1-1.30); MONOCYTES % (AUTO) 7.3 % (0.0-11.0); NEUTROPHILS % (AUTO) 67.2 % (38.5-71.5); PLATELET COUNT (AUTO) 252 K/UL (150-450); RED BLOOD CELL COUNT(AUTO) 3.64 MIL/UL (4.2-5.4); WHITE BLOOD COUNT (AUTO) 4.4 K/UL (4.0-11.2)
[2017-05-23] MEDS: METRONIDAZOLE 500 MG/NS 100ML 500 MG in PREMIXED 1 EACH IV SCH ×2 (06:39→14:19)
[2017-05-23 06:43] LABS: ABG PCO2 37.5 mmHg (35.0-45.0); ABG PH 7.441 (7.350-7.450); ABG SITE RIGHT RADIAL; ABG TOTAL HEMOGLOBIN 11.5 G/dL (12.0-16.0); COHb 1.4 % (0.5-1.5); MetHb 0.3 % (0.0-1.5); O2Hb 96.2 % (94.0-97.0)
[2017-05-23 06:47] LABS: BILIRUBIN,TOTAL 0.3 mg/dL (0.2-1.0); CREATININE 0.6 mg/dL (0.6-1.3); PHOSPHOROUS 3.2 mg/dL (2.5-4.9); POTASSIUM 3.5 mmol/L (3.5-5.1); TOTAL PROTEIN, SERUM 5.4 g/dL (6.4-8.2)
[2017-05-23 06:55] LABS: THYROID STIMULATING HORMONE 0.145 mIU/mL (0.358-3.740)
[2017-05-23 08:34] LABS: *OCCULT BLOOD STOOL NEGATIVE (NEGATIVE)
[2017-05-23] MEDS: predniSONE 50 MG TABLET PO SCH (08:52)
[2017-05-23] MEDS: HYDROXYCHLOROQUINE SULFATE 200 MG TABLET PO SCH (08:52)
[2017-05-23] MEDS: METHOTREXATE SODIUM 2.5 MG TABLET PO SCH (08:53)
[2017-05-23] MEDS: MYCOPHENOLATE MOFETIL 250 MG CAPSULE PO SCH (11:12)
--- NOTE | 2017-05-23 11:20 | NUR ---
PATIENT IN STABLE CONDITION, S/S OF DISTRESS. RESTING COMFORTABLY IN BED. VSS AT THE MOMENT. NO BOWEL MOVEMENT THROUGH ENTIRE ROLL TESTER UNTIL THIS TIME. PATIENT VERBALIZES THAT LAST BOWEL MOVEMENT WAS YESTERDAY AFTERNOON AND DID NOT HAVE DIARRHEA.
[2017-05-23 11:21] VITALS: BP 94/50
[2017-05-23] MEDS ORDERED: HYDROMORPHONE 1 MG/1 ML DISP.SYRIN IV PRN (13:45)
--- NOTE | 2017-05-23 13:48 | NUR ---
STILL C/O OF ABDOMINAL PAIN 12/09, ADDITIONAL DOSE OF DILUADID 1MG GIVEN.
[2017-05-23] MEDS ORDERED: HYDROMORPHONE 2 MG/1 ML DISP.SYRIN IV ONE (14:00)
--- NOTE | 2017-05-23 14:13 | NUR ---
Clinical pharmacy note-Vancomycin per pharmacy Subjective: To continue Vancomycin dosing on this patient for suspected infection (fever) Objective: BUN 5 Scr 0.6 WBC 4.4 Temp 98.2 ht 5' wt 126 lbs Trough: pending today at 1830 Assessment/Plan: Will continue Vancomycin 750mg IVPB every 14hrs for predicted vanco trough level of 15 mcg/ml. Trough is due today at 1830. Will check trough and adjust as needed. Will monitor renal function & adjust the dose if needed. Will monitor daily.
[2017-05-23 15:52] VITALS: BP 118/71
[2017-05-23] MEDS ORDERED: METR500T PO (17:17)
[2017-05-23] MEDS ORDERED: HYDR-3326 PO (17:17)
[2017-05-23] MEDS ORDERED: CIPR-262 PO (17:17)
--- NOTE | 2017-05-23 18:48 | NUR ---
WITH D/C ORDER TO HOME. PRESCRIPTION AND D/C INSTRUCTIONS GIVE TO PATIENT. VERBALIZES UNDERSTANDING. SALINE LOCK REMOVED. D/C HOME PER WHEELCHAIR. IN FAIR CONDITION AND NOT IN DISTRESS. AFEBRILE.
== END 2017-05-23 19:00 | disposition home or self-care (01) | DRG 248 ==
LOC: ER 21:47 → TELE 05-22 00:54 → MED 05-22 13:10
PROVIDERS: ADMIT Internal Medicine; ATTEND Internal Medicine
DX: A04.9 Bacterial intestinal infection, unspecified (principal); M32.9 Systemic lupus erythematosus, unspecified; E44.0 Moderate protein-calorie malnutrition; D50.9 Iron deficiency anemia, unspecified; E05.90 Thyrotoxicosis, unspecified without thyrotoxic crisis or storm; F17.210 Nicotine dependence, cigarettes, uncomplicated; E87.6 Hypokalemia; G43.909 Migraine, unspecified, not intractable, without status migrainosus; L51.9 Erythema multiforme, unspecified; Z86.19 Personal history of other infectious and parasitic diseases; E78.5 Hyperlipidemia, unspecified; Z79.899 Other long term (current) drug therapy; Z68.24 Body mass index [BMI] 24.0-24.9, adult
CPT/HCPCS: 36415; 36600; 70030-TC; 71010; 82746; 83550; 83605; 83690; 83735; 84100; 84443; 84703; 85025; 85651; 85730; 86625; 87040; 87046; 87086; 93005; 93307; A4663; J0692; J0696; J1170; J1885; J2405; J3370; J3490; J7030; J7060; J7512; J7517; J8610

== ENCOUNTER 2017-06-26 23:02 | Emergency (ER) | payer OTHER ==
[~2017-06-26] VITALS: Ht 152.4 cm; Wt 54.4 kg
[~2017-06-26 23:02] MED LIST changes: +CIPR-262 PO; +HYDR-3326 PO; +METR500T PO
[2017-06-27] MEDS ORDERED: IV NORMAL SALINE 1000 ML BAG IV ONE (01:30)
[2017-06-27] MEDS ORDERED: methylPREDNISolone SOD SUCC 40 MG/ML VIAL IV ONE (01:30)
[2017-06-27] MEDS ORDERED: FAMOTIDINE. 20 MG/2 ML VIAL IV ONE ×2 (01:30→02:01)
[2017-06-27 01:51] LABS: BASOPHILS % (AUTO) 0.4 % (0.0-2.0); EOSINOPHILS # (AUTO) 0.1 K/uL (0.0-0.7); EOSINOPHILS % (AUTO) 1.1 % (0.0-7.0); HEMOGLOBIN 11.8 g/dL (10.9-14.3); LYMPHOCYTES # (AUTO) 1.7 K/uL (20.0-40.0); LYMPHOCYTES % (AUTO) 33.4 % (20.5-51.5); MEAN CORPUSCULAR HEMOGLOBIN 29.7 uug (24.7-32.8); MEAN CORPUSCULAR HGB CONC 34 g/dL (32.3-35.6); MEAN CORPUSCULAR VOLUME 88.4 fL (75.5-95.3); MONOCYTES # (AUTO) 0.5 K/uL (2.0-10.0); MONOCYTES % (AUTO) 9.3 % (0.0-11.0); NEUTROPHILS # (AUTO) 2.9 K/uL (1.8-8.9); NEUTROPHILS % (AUTO) 55.8 % (38.5-71.5); PLATELET COUNT (AUTO) 254 K/uL (179-408); RED BLOOD CELL COUNT(AUTO) 3.96 MIL/uL (3.63-4.92); WHITE BLOOD COUNT (AUTO) 5.2 K/uL (3.8-11.8)
[2017-06-27 02:01] LABS: BILIRUBIN,DIRECT 0.1 mg/dL (0.0-0.2); BILIRUBIN,TOTAL 0.3 mg/dL (0.2-1.0); CREATININE 0.9 mg/dL (0.6-1.3); POTASSIUM 3.5 mmol/L (3.5-5.1); TOTAL PROTEIN, SERUM 6.4 g/dL (6.4-8.2)
[2017-06-27] MEDS ORDERED: methylPREDNISolone SOD SUCC 40 MG/ML VIAL ONE (02:01)
[2017-06-27] MEDS ORDERED: MORPHINE SULFATE 4 MG/1 ML DISP.SYRIN IV ONE (02:15)
[2017-06-27] MEDS ORDERED: ONDANSETRON 4 MG/2 ML VIAL IV ONE (02:15)
[2017-06-27] MEDS ORDERED: ONDANSETRON 4 MG/2 ML VIAL ONE (02:33)
[2017-06-27] MEDS ORDERED: MORPHINE SULFATE 4 MG/1 ML DISP.SYRIN ONE (02:33)
--- NOTE | 2017-06-27 03:47 | NUR ---
Patient discharged to home in stable conditon. Written and verbal after care instructions given. Patient verbalizes understanding of instructions.
== END 2017-06-27 03:50 | disposition home or self-care (01) ==
LOC: ER 23:10
DX: R51 Headache (principal); F17.200 Nicotine dependence, unspecified, uncomplicated; Z88.8 Allergy status to other drugs, medicaments and biological substances
CPT/HCPCS: 36415; 85025; A4663; J2270; J2405; J2920; J3490; J7030

== ENCOUNTER 2017-08-14 14:48 | Inpatient (IN) | payer OTHER ==
[~2017-08-14] VITALS: Ht 152.4 cm; Wt 56.7 kg
[2017-08-14] MEDS ORDERED: IV NORMAL SALINE 1000 ML BAG IV ONE (15:30)
[2017-08-14] MEDS ORDERED: ONDANSETRON 4 MG/2 ML VIAL IV ONE (15:30)
[2017-08-14] MEDS ORDERED: HYDROMORPHONE 1 MG/1 ML DISP.SYRIN IV ONE ×2 (15:30→18:00)
[2017-08-14 15:49] LABS: *BILIRUBIN,URIN NEGATIVE (NEGATIVE); *BLOOD, URINE Trace-lysed (NEGATIVE); *CLARITY,URINE CLEAR (CLEAR); *COLOR,URINE LIGHT YELLOW (YELLOW); *KETONES,URINE 1+ (NEGATIVE); *PROTEIN,URINE NEGATIVE (NEGATIVE); *UROBILINOGEN,URINE 0.2 E.U./dl (NORMAL); LEUKOCYTE ESTERASE ,URINE NEGATIVE (NEGATIVE); NITRITE, URINE NEGATIVE (NEGATIVE); PH,URINE 6.5 (5.0-8.0); UGLUCOSE NEGATIVE (NEGATIVE)
[2017-08-14 15:51] LABS: *URINE HCG, QUAL NEGATIVE (NEGATIVE)
[2017-08-14 15:53] LABS: BASOPHILS % (AUTO) 0.3 % (0.0-2.0); HEMATOCRIT 30.7 % (31.2-41.9); HEMOGLOBIN 10.4 g/dL (10.9-14.3); LYMPHOCYTES # (AUTO) 1.2 K/uL (20.0-40.0); LYMPHOCYTES % (AUTO) 42.5 % (20.5-51.5); MEAN CORPUSCULAR HEMOGLOBIN 28.9 uug (24.7-32.8); MEAN CORPUSCULAR HGB CONC 34 g/dL (32.3-35.6); MEAN CORPUSCULAR VOLUME 85.5 fL (75.5-95.3); MONOCYTES # (AUTO) 0.3 K/uL (2.0-10.0); NEUTROPHILS # (AUTO) 1.3 K/uL (1.8-8.9); NEUTROPHILS % (AUTO) 45.2 % (38.5-71.5); PLATELET COUNT (AUTO) 192 K/uL (179-408); RED BLOOD CELL COUNT(AUTO) 3.59 MIL/uL (3.63-4.92); WHITE BLOOD COUNT (AUTO) 2.8 K/uL (3.8-11.8)
[2017-08-14 15:55] LABS: CREATININE 0.7 mg/dL (0.6-1.3); POTASSIUM 3.5 mmol/L (3.5-5.1)
[2017-08-14 15:58] LABS: MUCUS,URINE FEW /LPF (0-FEW); SQUAMOUS EPITHELIAL CELL,UR FEW /HPF (NONE SEEN); WBC,URINE 0-3 /HPF (0-3)
[2017-08-14] MEDS ORDERED: HYDROMORPHONE 2 MG/1 ML DISP.SYRIN ONE ×2 (16:03→18:15)
[2017-08-14] MEDS ORDERED: ONDANSETRON 4 MG/2 ML VIAL ONE ×2 (16:03→18:15)
[2017-08-14 16:08] LABS: BILIRUBIN,DIRECT 0.1 mg/dL (0.0-0.2); BILIRUBIN,TOTAL 0.3 mg/dL (0.2-1.0); TOTAL PROTEIN, SERUM 5.8 g/dL (6.4-8.2)
--- NOTE | 2017-08-14 16:25 | NUR ---
Dr Vuong at the bedside for MSE.
[2017-08-14 16:29] LABS: BAND % (MANUAL) 12 % (0-10); NEUTROPHILS % (MANUAL) 36 % (42-75)
[2017-08-14 16:30] LABS: LYMPHOCYTES % (MANUAL) 39 % (20-40); MONOCYTES % (MANUAL) 13 % (2-10)
[2017-08-14] MEDS ORDERED: VANCOMYCIN IV 1,000 MG in IV DEXTROSE 5% 250 ML IV ONE (16:45)
[2017-08-14] MEDS ORDERED: PIPERACILLIN SODIUM/TAZOBACTAM 3.375 G in IV DEXTROSE 5% 50 ML IV ONE (16:45)
--- NOTE | 2017-08-14 17:07 | NUR ---
Patient is resting comfortably in bed with eyes closed, NAD noted.
[2017-08-14] MEDS ORDERED: PIPERACILLIN/TAZOBACTAM/D5W 50 ML IV ONE (17:12)
[2017-08-14] MEDS ORDERED: VANCOMYCIN IV 200 ML ONE (17:12)
[2017-08-14] MEDS ORDERED: ONDANSETRON IV *ER 4 MG/2 ML VIAL IV ONE (18:00)
--- NOTE | 2017-08-14 18:10 | NUR ---
Pt denies nausea/vomitting, requesting dinner. Alma and juice given.
[2017-08-14] MEDS ORDERED: ACETAMINOPHEN 325 MG TABLET PO PRN (18:15)
[2017-08-14] MEDS ORDERED: Z GUARD REMEDY PASTE 57 GM TUBE TOP PRN (18:15)
[2017-08-14] MEDS ORDERED: ONDANSETRON 4 MG/2 ML VIAL IV PRN (18:15)
[2017-08-14] MEDS ORDERED: METHOTREXATE PO SCH (18:15)
--- NOTE | 2017-08-14 18:17 | NUR ---
belonging list completed, pt not candidate for MRSA.
--- NOTE | 2017-08-14 18:40 | NUR ---
RECEIVED PATIENT FROM ED 26 YEARS OLD FEMALE BY BRETT TO ROOM 220 PLACED INTO BED FIXED AND MADE COMFORTABLE PATIENT IS ALERT AND ORIENTED DENIES PAIN OR DISCOMFORTS AT THIS TIME SHE HAS VANCOMICIN INFUSING TO HER RIGHT AC WHICH IS PATENT WITH NO S/S OF INFILTERATION AT THIS TIME.PATIENT ORIENTED TO HOSPITAL PROTOCOL ROOM ETC ADMISSION OF THIS PATIENT ENDORSED TO ONCOMING RN.NOT IN DISTRESS AT THIS TIME.
[2017-08-14 18:52] VITALS: BP 101/57
--- NOTE | 2017-08-14 19:10 | NUR ---
Pt was admitted to the floor 1844. It was endorsed to me by daysvaft nurse. I assessed the pt. IV intact and patent. Pt said she's in pain. Doctor aware. Call light within reach. Will continue to monitor.
[2017-08-14 20:00] VITALS: BP 95/50
[2017-08-14] MEDS ORDERED: LEVOFLOXACIN 500 MG/D5W 500 MG in PREMIXED 1 EACH IV SCH (20:00)
[2017-08-14] MEDS: predniSONE 50 MG TABLET PO SCH (20:29)
[2017-08-14] MEDS: HYDROXYCHLOROQUINE SULFATE 200 MG TABLET PO SCH (20:29)
[2017-08-14] MEDS: MYCOPHENOLATE MOFETIL 250 MG CAPSULE PO SCH (20:30)
[2017-08-14] MEDS: HYDROCODONE/APAP 5-325MG TABLET PO PRN (20:44)
[2017-08-14] MEDS: IV NS 1000 ML 1,000 ML IV PRN (20:51)
[2017-08-15] MEDS: HYDROCODONE/APAP 5-325MG TABLET PO PRN ×2 (03:01→09:36)
[2017-08-15 04:40] VITALS: BP 100/52
[2017-08-15 04:51] VITALS: BP 127/70
--- NOTE | 2017-08-15 06:20 | NUR ---
Pt Slept intermittently. Pt was complaining of severe pain.I just gave the prescribed pain medication to the pt . Hammett and tylenol. Gave Ice pack to relieve pain . Pt asking for pain meds through IV but said that there will be Pain specialist to assess the pt. Pt aware of it. Pt Iv intact and patent. Pt is on neutropenic precaution.Safety and comfort provided.
--- NOTE | 2017-08-15 07:00 | NUR ---
RECEIVED PATIENT ON BED, A AND O X 4, ON REVERSE ISOLATION DUE TO NEUTROPENIA, NO ACUTE DISTRESS NOTED. WITH IV ACCESS ON THE RIGHT AC #20 INTACT AND PATENT RUNNING NS @ 75 CC/HR. AMBULATORY, INDEPENDENT WITH ADLS. COMPLAINS OF HEADACHE AND JOINT PAIN, BUT NOT AT THIS TIME. ALL COMFORT MEASURES PROVIDED. WILL CONTINUE TO MONITOR CLOSELY.
[2017-08-15 07:07] LABS: BASOPHILS % (AUTO) 0.4 % (0.0-2.0); EOSINOPHILS % (AUTO) 0.1 % (0.0-7.0); HEMOGLOBIN 11.2 g/dL (10.9-14.3); LYMPHOCYTES # (AUTO) 0.6 K/uL (20.0-40.0); LYMPHOCYTES % (AUTO) 51.3 % (20.5-51.5); MEAN CORPUSCULAR HEMOGLOBIN 29.1 uug (24.7-32.8); MEAN CORPUSCULAR HGB CONC 34 g/dL (32.3-35.6); MEAN CORPUSCULAR VOLUME 85.8 fL (75.5-95.3); MONOCYTES # (AUTO) 0.1 K/uL (2.0-10.0); MONOCYTES % (AUTO) 8.7 % (0.0-11.0); NEUTROPHILS # (AUTO) 0.4 K/uL (1.8-8.9); NEUTROPHILS % (AUTO) 39.5 % (38.5-71.5); PLATELET COUNT (AUTO) 236 K/uL (179-408); RED BLOOD CELL COUNT(AUTO) 3.85 MIL/uL (3.63-4.92)
[2017-08-15 07:13] LABS: BILIRUBIN,TOTAL 0.2 mg/dL (0.2-1.0); CREATININE 0.6 mg/dL (0.6-1.3); TOTAL PROTEIN, SERUM 6.5 g/dL (6.4-8.2)
[2017-08-15 07:32] LABS: WHITE BLOOD COUNT (AUTO) 1.1 K/uL (3.8-11.8)
[2017-08-15] MEDS ORDERED: predniSONE 50 MG TABLET PO SCH (09:00)
[2017-08-15 09:23] LABS: NEUTROPHILS % (MANUAL) 40 % (42-75)
[2017-08-15 09:24] LABS: BAND % (MANUAL) 2 % (0-10); LYMPHOCYTES % (MANUAL) 50 % (20-40); MONOCYTES % (MANUAL) 8 % (2-10)
[2017-08-15] MEDS: HYDROXYCHLOROQUINE SULFATE 200 MG TABLET PO SCH (09:33)
[2017-08-15] MEDS: predniSONE 50 MG TABLET PO SCH (09:33)
[2017-08-15] MEDS: METHOTREXATE SODIUM 2.5 MG TABLET PO SCH (09:34)
--- NOTE | 2017-08-15 09:45 | NUR ---
COMPLAINED OF HEADACHE AND JOINT PAIN, 02/08, ADMINISTERED NORCO 5/325 MG Q6 PRN, WILL REASSESS AFTER 30 MINS.
[2017-08-15] MEDS: CEFEPIME HCL IV SCH ×2 (10:12→17:20)
[2017-08-15] MEDS: NORMAL SALINE IV SCH ×2 (10:12→17:20)
[2017-08-15] MEDS: MYCOPHENOLATE MOFETIL 250 MG CAPSULE PO SCH ×2 (10:13→20:39)
--- NOTE | 2017-08-15 10:30 | NUR ---
REASSESSED PAIN LEVEL 01/08, PATIENT STATED THAT NORCO HELPED BUT NOT THAT MUCH. WILL CONTINUE TO MONITOR.
--- NOTE | 2017-08-15 12:00 | NUR ---
SEEN AND EXAMINED BY DR. AGUIRRE. WITH NEW ORDERS NOTED AND CARRIED OUT.
[2017-08-15 12:18] VITALS: BP 105/62
[2017-08-15] MEDS ORDERED: TRAMADOL HCL 50 MG TABLET PO PRN (13:30)
--- NOTE | 2017-08-15 14:50 | NUR ---
PATIENT COMPLAINED OF HEADACHE AND JOINT PAIN, WITH NEW ORDERS FOR TRAMADOL 50 MG PRN FOR PAIN, REFUSED TO TAKE MEDICATION SAYING THAT SHE TOOK TRAMADOL AT HOME BUT IT DOESNT WORK, ASKED IF SHE COULD SPEAK AGAIN TO DR. AGUIRRE. GAVE 'S OFFICE NUMBER TO PATIENT. ALSO INFORMED RANJEET CHARGE NURSE. WILL CONTINUE TO MONITOR.
[2017-08-15] MEDS ORDERED: TBO-FILGRASTIM 300 MCG/0.5 ML SYRINGE SQ SCH ×2 (15:15→18:00)
[2017-08-15 15:59] VITALS: BP 109/57
[2017-08-15] MEDS ORDERED: MORPHINE SULFATE 2 MG/1 ML DISP.SYRIN IV PRN (17:45)
--- NOTE | 2017-08-15 17:50 | NUR ---
SPOKE TO DR. AGUIRRE ABOUT PATIENT'S CONCERN WITH PAIN MEDICATION, WITH TELEPHONE ORDER OF MORPHINE SULFATE 2MG IV Q4 PRN FOR PAIN, ORDERS NOTED AND CARRIED OUT.
[2017-08-15] MEDS: MORPHINE SULFATE 4 MG/1 ML DISP.SYRIN IV PRN ×2 (18:26→21:49)
[2017-08-15 20:00] VITALS: BP 108/63
--- NOTE | 2017-08-15 20:30 | NUR ---
RECEIVED PATIENT IN BED, ALERT, ORIENTED, CONT ON PAIN MANAGEMENT, CONT ON REVERSE ISOLATION, CALL LIGHT WITHIN REACH, CONT TO MONITOR.
[2017-08-16] MEDS: CEFEPIME HCL IV SCH ×2 (01:46→10:21)
[2017-08-16] MEDS: NORMAL SALINE IV SCH ×2 (01:46→10:21)
[2017-08-16 05:30] VITALS: BP 100/60
[2017-08-16] MEDS: IV NS 1000 ML 1,000 ML IV PRN (06:13)
[2017-08-16] MEDS: MORPHINE SULFATE 4 MG/1 ML DISP.SYRIN IV PRN ×2 (06:23→11:45)
--- NOTE | 2017-08-16 07:10 | NUR ---
RECEIVED REPORT FRO SUPERVISOR CORE SHOP NURSE, PATIENT IN BED AWAKE, REPORTS A LITTLE PAIN. PATIENT ALSO REPORTS THAT HER IV IN HER ARM IS UNCOMFORTABLE AND HAS BEEN BEEPING ALL NIGHT.
[2017-08-16] MEDS: predniSONE 50 MG TABLET PO SCH (09:10)
--- NOTE | 2017-08-16 09:10 | NUR ---
REPLACED PATIENTS IV TO LEFT FOREARM 22G.
[2017-08-16] MEDS: METHOTREXATE SODIUM 2.5 MG TABLET PO SCH (09:11)
[2017-08-16] MEDS: HYDROXYCHLOROQUINE SULFATE 200 MG TABLET PO SCH (09:12)
[2017-08-16 09:28] LABS: BASOPHILS # (AUTO) 0.1 K/uL (0.0-8.0); BASOPHILS % (AUTO) 0.3 % (0.0-2.0); HEMATOCRIT 30.5 % (31.2-41.9); HEMOGLOBIN 10.3 g/dL (10.9-14.3); LYMPHOCYTES # (AUTO) 2.2 K/uL (20.0-40.0); LYMPHOCYTES % (AUTO) 8.9 % (20.5-51.5); MEAN CORPUSCULAR HEMOGLOBIN 29.1 uug (24.7-32.8); MEAN CORPUSCULAR HGB CONC 34 g/dL (32.3-35.6); MEAN CORPUSCULAR VOLUME 85.9 fL (75.5-95.3); MONOCYTES # (AUTO) 1.1 K/uL (2.0-10.0); MONOCYTES % (AUTO) 4.6 % (0.0-11.0); NEUTROPHILS # (AUTO) 21.6 K/uL (1.8-8.9); NEUTROPHILS % (AUTO) 86.2 % (38.5-71.5); PLATELET COUNT (AUTO) 213 K/uL (179-408); RED BLOOD CELL COUNT(AUTO) 3.54 MIL/uL (3.63-4.92)
[2017-08-16] MEDS: MYCOPHENOLATE MOFETIL 250 MG CAPSULE PO SCH (09:37)
[2017-08-16 09:44] LABS: CREATININE 0.7 mg/dL (0.6-1.3); MAGNESIUM 1.8 mg/dL (1.8-2.4); PHOSPHOROUS 4.1 mg/dL (2.5-4.9); POTASSIUM 3.3 mmol/L (3.5-5.1)
[2017-08-16] MEDS ORDERED: LEVO500T2 PO (10:04)
[2017-08-16] MEDS ORDERED: HYDR-3326 PO (10:04)
[2017-08-16] MEDS: HYDROCODONE/APAP 5-325MG TABLET PO PRN (10:21)
[2017-08-16 11:16] VITALS: BP 93/49
--- NOTE | 2017-08-16 12:20 | NUR ---
PATIENT WAS PROVIDED EDUCATION AND HER PRESCRIPTION FOR NORCO. ALL QUESTIONS ANSWERED. PATIENT IS DISCHARGED TO HOME, AND PICKED UP BY HER DAUGHTER. Addendum: 08/16/17 at 1227 by TAMIR KING RN ERROR: PICKED UP BY HER MOTHER.
== END 2017-08-16 12:20 | disposition home or self-care (01) | DRG 660 ==
LOC: ER 14:49 → MED 18:11
PROVIDERS: ADMIT Internal Medicine; ATTEND Internal Medicine
DX: D70.2 Other drug-induced agranulocytosis (principal); M32.9 Systemic lupus erythematosus, unspecified; D61.811 Other drug-induced pancytopenia; R50.81 Fever presenting with conditions classified elsewhere; T45.1X5A Adverse effect of antineoplastic and immunosuppressive drugs, initial encounter; Y92.009 Unspecified place in unspecified non-institutional (private) residence as the place of occurrence of the external cause; G89.4 Chronic pain syndrome; I77.6 Arteritis, unspecified; Z79.52 Long term (current) use of systemic steroids
CPT/HCPCS: 36415; 71045; 83605; 83690; 83735; 84100; 84703; 85025; 85651; 87040; 87086; 87806; A4663; J0692; J1170; J1447; J1956; J2270; J2405; J2543; J3370; J3490; J7030; J7512; J7517; J8610

== ENCOUNTER 2017-11-03 21:42 | Emergency (ER) | payer OTHER ==
[~2017-11-03] VITALS: Ht 152.4 cm; Wt 54.4 kg
[~2017-11-03 21:42] MED LIST changes: -CIPR-262 PO; -HYDR200T PO; +HYDR200T81 PO; +LEVO500T2 PO; -METR500T PO
--- NOTE | 2017-11-03 22:08 | NUR ---
Patient is awake, alert, oriented x4. Able to make needs known. able to speak in complete sentenses. Patient comes in with complaint of pain to the R leg and R knee. patient states she woke up @ 0930 with pain to the R knee. The pain has become increasingly worse throughout the day, 1 hour OTOLARYNGOLOGY REP she was unable to ambulate due to the pain, and decided to come into the ER for fruther evaluation. Patient has history of Lupus.
[2017-11-03] MEDS ORDERED: OXYCODONE/APAP 5-325 MG TABLET PO ONE (22:15)
[2017-11-03] MEDS ORDERED: OXYCODONE/APAP 5-325 MG TABLET ONE (22:16)
--- NOTE | 2017-11-03 22:55 | NUR ---
Patient in bed, no acute distress noted. VSS. Will continue to monitor patient.
--- NOTE | 2017-11-03 23:14 | NUR ---
US at bedside
[2017-11-03 23:48] VITALS: BP 117/72
--- NOTE | 2017-11-03 23:48 | NUR ---
Patient discharged to home in stable conditon. Written and verbal after care instructions given. Patient verbalizes understanding of instructions. Ambulated from ER with stable gait. All belongings with patient. patient will be driven home by taxi, instructed not to drive due to recent intake of opiates. [facility] WNL s/p RLE knee immobilizer placement.
== END 2017-11-03 23:52 | disposition home or self-care (01) ==
LOC: ER 21:42
DX: M25.561 Pain in right knee (principal); M32.9 Systemic lupus erythematosus, unspecified; F12.10 Cannabis abuse, uncomplicated; F17.210 Nicotine dependence, cigarettes, uncomplicated; Z79.891 Long term (current) use of opiate analgesic; Z71.6 Tobacco abuse counseling; Z79.2 Long term (current) use of antibiotics; Z79.899 Other long term (current) drug therapy
CPT/HCPCS: A4663

== ENCOUNTER 2018-04-04 22:39 | Emergency (ER) | payer OTHER ==
[~2018-04-04] VITALS: Ht 152.4 cm; Wt 54.4 kg
[~2018-04-04 22:39] MED LIST changes: -HYDR-3326 PO; -LEVO500T2 PO
[2018-04-04] MEDS ORDERED: MORPHINE SULFATE 2 MG/1 ML DISP.SYRIN IV ONE (23:15)
[2018-04-04] MEDS ORDERED: IV NORMAL SALINE 1000 ML BAG IV ONE (23:15)
[2018-04-04] MEDS ORDERED: PANTOPRAZOLE SODIUM 40 MG VIAL IV ONE (23:15)
[2018-04-04] MEDS ORDERED: ONDANSETRON 4 MG/2 ML VIAL IV ONE (23:15)
[2018-04-04] MEDS ORDERED: MORPHINE SULFATE 4 MG/1 ML DISP.SYRIN ONE (23:22)
[2018-04-04 23:23] LABS: BASOPHILS % (AUTO) 0.4 % (0.0-2.0); EOSINOPHILS % (AUTO) 0.3 % (0.0-7.0); HEMOGLOBIN 11.7 g/dL (10.9-14.3); LYMPHOCYTES # (AUTO) 1.3 K/uL (20.0-40.0); LYMPHOCYTES % (AUTO) 28.8 % (20.5-51.5); MEAN CORPUSCULAR HEMOGLOBIN 29.6 uug (24.7-32.8); MEAN CORPUSCULAR HGB CONC 35 g/dL (32.3-35.6); MEAN CORPUSCULAR VOLUME 85.7 fL (75.5-95.3); MONOCYTES # (AUTO) 0.4 K/uL (2.0-10.0); MONOCYTES % (AUTO) 8.9 % (0.0-11.0); NEUTROPHILS # (AUTO) 2.8 K/uL (1.8-8.9); NEUTROPHILS % (AUTO) 61.6 % (38.5-71.5); PLATELET COUNT (AUTO) 283 K/uL (179-408); RED BLOOD CELL COUNT(AUTO) 3.97 MIL/uL (3.63-4.92); WHITE BLOOD COUNT (AUTO) 4.5 K/uL (3.8-11.8)
[2018-04-04] MEDS ORDERED: PANTOPRAZOLE SODIUM 40 MG VIAL ONE (23:23)
[2018-04-04] MEDS ORDERED: ONDANSETRON 4 MG/2 ML VIAL ONE (23:23)
[2018-04-04 23:28] LABS: *BILIRUBIN,URIN NEGATIVE (NEGATIVE); *BLOOD, URINE NEGATIVE (NEGATIVE); *COLOR,URINE YELLOW (YELLOW); *KETONES,URINE NEGATIVE (NEGATIVE); *PROTEIN,URINE NEGATIVE (NEGATIVE); *UROBILINOGEN,URINE 0.2 E.U./dl (NORMAL); LEUKOCYTE ESTERASE ,URINE NEGATIVE (NEGATIVE); NITRITE, URINE NEGATIVE (NEGATIVE); UGLUCOSE NEGATIVE (NEGATIVE)
--- NOTE | 2018-04-04 23:34 | NUR ---
Pt went down to radiology dept. for CT scan and Xray.
[2018-04-04 23:35] LABS: CARBON DIOXIDE 23 mmol/L (21-32); CHLORIDE 104 mmol/L (98-107); CREATININE 0.7 mg/dL (0.6-1.3); GLUCOSE 90 mg/dL (74-106); POTASSIUM 3.7 mmol/L (3.5-5.1); UREA NITROGEN, BLOOD 11 mg/dL (7-18)
[2018-04-04 23:38] LABS: *CLARITY,URINE HAZY (CLEAR)
[2018-04-04 23:39] LABS: BACTERIA,URINE FEW /HPF (NONE SEEN); RBC,URINE 0-3 /HPF (0-3); SQUAMOUS EPITHELIAL CELL,UR MANY /HPF (NONE SEEN); WBC,URINE 0-3 /HPF (0-3)
[2018-04-04 23:41] LABS: ALANINE AMINOTRANSFERASE 22 U/L (14-59); ALKALINE PHOSPHATASE 48 U/L (50-136); ASPARTATE AMINOTRANSFERASE 16 U/L (15-37); BILIRUBIN,DIRECT 0.1 mg/dL (0.0-0.2); BILIRUBIN,TOTAL 0.4 mg/dL (0.2-1.0); LIPASE 160 U/L (73-393); TOTAL PROTEIN, SERUM 6.9 g/dL (6.4-8.2)
--- NOTE | 2018-04-04 23:42 | NUR ---
Pt back from radiology dept. No acute distress noted.
[2018-04-05] MEDS ORDERED: HYDROCORTISONE 10 MG TABLET PO ONE (00:30)
[2018-04-05] MEDS ORDERED: HYDROCORTISONE 10 MG TABLET ONE (00:34)
--- NOTE | 2018-04-05 00:37 | NUR ---
IV removed. Catheter intact and site benign. Pressure and 4x4 gauze applied to site. No bleeding noted.
--- NOTE | 2018-04-05 00:49 | NUR ---
Patient discharged to home in stable conditon. Written and verbal after care instructions given. Patient verbalizes understanding of instructions. Pt ambulated out of ER in steady gait. Pt has somebody to pick her up. All belongings with pt. VSS. NAD noted.
--- NOTE | 2018-04-05 00:49 | NUR ---
Pt's phone number: [phone]
[2018-04-05 00:50] VITALS: BP 132/81
== END 2018-04-05 00:51 | disposition home or self-care (01) ==
LOC: ER 22:42
DX: S06.0X0A Concussion without loss of consciousness, initial encounter (principal); F17.200 Nicotine dependence, unspecified, uncomplicated; F12.10 Cannabis abuse, uncomplicated; Z88.8 Allergy status to other drugs, medicaments and biological substances; Y04.0XXA Assault by unarmed brawl or fight, initial encounter; Y93.89 Activity, other specified; Y92.89 Other specified places as the place of occurrence of the external cause; Y99.8 Other external cause status
CPT/HCPCS: 36415; 70450; 71045; 82533; 83690; 84443; 85025; A4663; C9113; J2270; J2405; J7030

== ENCOUNTER 2018-04-07 12:00 | Emergency (ER) | payer OTHER ==
[~2018-04-07] VITALS: Ht 152.4 cm; Wt 54.4 kg
--- NOTE | 2018-04-07 12:10 | NUR ---
Dr Smith at the bedside for MSE.
[2018-04-07] MEDS ORDERED: MORPHINE SULFATE 4 MG/1 ML DISP.SYRIN ONE (12:23)
[2018-04-07] MEDS ORDERED: ONDANSETRON 4 MG/2 ML VIAL ONE (12:23)
[2018-04-07 12:26] LABS: BASOPHILS % (AUTO) 0.3 % (0.0-2.0); EOSINOPHILS % (AUTO) 0.5 % (0.0-7.0); HEMATOCRIT 36.4 % (31.2-41.9); HEMOGLOBIN 12.3 g/dL (10.9-14.3); LYMPHOCYTES # (AUTO) 1.2 K/uL (20.0-40.0); LYMPHOCYTES % (AUTO) 25.7 % (20.5-51.5); MEAN CORPUSCULAR HEMOGLOBIN 29.6 uug (24.7-32.8); MEAN CORPUSCULAR HGB CONC 34 g/dL (32.3-35.6); MEAN CORPUSCULAR VOLUME 87.7 fL (75.5-95.3); MONOCYTES # (AUTO) 0.5 K/uL (2.0-10.0); NEUTROPHILS # (AUTO) 2.9 K/uL (1.8-8.9); NEUTROPHILS % (AUTO) 63.5 % (38.5-71.5); PLATELET COUNT (AUTO) 271 K/uL (179-408); RED BLOOD CELL COUNT(AUTO) 4.15 MIL/uL (3.63-4.92); WHITE BLOOD COUNT (AUTO) 4.6 K/uL (3.8-11.8)
[2018-04-07] MEDS ORDERED: PANTOPRAZOLE SODIUM 40 MG VIAL IV ONE (12:30)
[2018-04-07] MEDS ORDERED: HYDROCORTISONE SOD SUCCINATE 100 MG/2 ML VIAL IV ONE ×2 (12:30→12:37)
[2018-04-07] MEDS ORDERED: MORPHINE SULFATE 2 MG/1 ML DISP.SYRIN IV ONE (12:30)
[2018-04-07] MEDS ORDERED: IV NORMAL SALINE 1000 ML BAG IV ONE (12:30)
[2018-04-07] MEDS ORDERED: ONDANSETRON 4 MG/2 ML VIAL IV ONE (12:30)
[2018-04-07 12:33] LABS: CREATININE 0.7 mg/dL (0.6-1.3); POTASSIUM 3.6 mmol/L (3.5-5.1)
[2018-04-07 12:37] LABS: *BILIRUBIN,URIN NEGATIVE (NEGATIVE); *BLOOD, URINE NEGATIVE (NEGATIVE); *CLARITY,URINE CLEAR (CLEAR); *COLOR,URINE LIGHT YELLOW (YELLOW); *KETONES,URINE NEGATIVE (NEGATIVE); *PROTEIN,URINE NEGATIVE (NEGATIVE); *UROBILINOGEN,URINE 0.2 E.U./dl (NORMAL); LEUKOCYTE ESTERASE ,URINE NEGATIVE (NEGATIVE); NITRITE, URINE NEGATIVE (NEGATIVE); PH,URINE 7.5 (5.0-8.0); UGLUCOSE NEGATIVE (NEGATIVE)
[2018-04-07] MEDS ORDERED: PANTOPRAZOLE SODIUM 40 MG VIAL ONE (12:37)
[2018-04-07 12:39] LABS: BILIRUBIN,DIRECT 0.1 mg/dL (0.0-0.2); BILIRUBIN,TOTAL 0.4 mg/dL (0.2-1.0); TOTAL PROTEIN, SERUM 7.2 g/dL (6.4-8.2)
[2018-04-07 12:39] LABS: *URINE HCG, QUAL NEGATIVE (NEGATIVE)
[2018-04-07 13:00] LABS: BACTERIA,URINE NONE SEEN /HPF (NONE SEEN); RBC,URINE 0-3 /HPF (0-3); SQUAMOUS EPITHELIAL CELL,UR FEW /HPF (NONE SEEN); WBC,URINE 0-3 /HPF (0-3)
--- NOTE | 2018-04-07 13:22 | NUR ---
Pt resting in bed, speaking on the phone, appears in no acute distress.
[2018-04-07] MEDS ORDERED: HYDROMORPHONE 1 MG/1 ML DISP.SYRIN ONE (13:58)
[2018-04-07] MEDS ORDERED: HYDROMORPHONE 1 MG/1 ML DISP.SYRIN IV ONE (14:00)
[2018-04-07 14:36] VITALS: BP 120/81
--- NOTE | 2018-04-07 14:36 | NUR ---
IV removed. Catheter intact and site benign. Pressure and 4x4 gauze applied to site. No bleeding noted.
== END 2018-04-07 14:37 | disposition home or self-care (01) ==
LOC: ER 12:00
DX: M32.9 Systemic lupus erythematosus, unspecified (principal); R51 Headache; F17.200 Nicotine dependence, unspecified, uncomplicated; F12.10 Cannabis abuse, uncomplicated; Z88.8 Allergy status to other drugs, medicaments and biological substances
CPT/HCPCS: 36415; 71045; 82533; 84703; 85025; A4663; C9113; J1170; J1720; J2270; J2405

== ENCOUNTER 2018-05-23 14:34 | Emergency (ER) | payer OTHER ==
[~2018-05-23] VITALS: Ht 152.4 cm; Wt 56.7 kg
[2018-05-23] MEDS ORDERED: HYDROMORPHONE 2 MG/1 ML DISP.SYRIN ONE (15:06)
[2018-05-23] MEDS ORDERED: ONDANSETRON 4 MG/2 ML VIAL ONE (15:06)
[2018-05-23] MEDS ORDERED: ONDANSETRON 4 MG/2 ML VIAL IV ONE (15:15)
[2018-05-23] MEDS ORDERED: HYDROMORPHONE 1 MG/1 ML DISP.SYRIN IV ONE (15:15)
[2018-05-23] MEDS ORDERED: IV NORMAL SALINE 1000 ML BAG IV ONE (15:15)
--- NOTE | 2018-05-23 16:13 | NUR ---
Patient discharged to home in stable conditon. Written and verbal after care instructions given. Patient verbalizes understanding of instructions.
== END 2018-05-23 16:15 | disposition home or self-care (01) ==
LOC: ER 14:34
DX: G43.909 Migraine, unspecified, not intractable, without status migrainosus (principal); F17.200 Nicotine dependence, unspecified, uncomplicated; F12.10 Cannabis abuse, uncomplicated; Z88.8 Allergy status to other drugs, medicaments and biological substances
CPT/HCPCS: 96374; 96375; 99283; J1170; J2405; A4663; J7030

== ENCOUNTER 2018-09-10 22:00 | Emergency (ER) | payer MEDICAID, OTHER ==
[~2018-09-10] VITALS: Ht 152.4 cm; Wt 54.4 kg
[~2018-09-10 22:00] MED LIST changes: -HYDR200T81 PO; -METHOTREXATE 2.5 MG PO; -MYCO250C PO
--- NOTE | 2018-09-10 22:29 | NUR ---
Dr. Smith at bedside for MSE.
[2018-09-10 22:45] LABS: BASOPHILS % (AUTO) 0.7 % (0.0-2.0); EOSINOPHILS % (AUTO) 0.8 % (0.0-7.0); HEMATOCRIT 33.3 % (31.2-41.9); HEMOGLOBIN 11.2 g/dL (10.9-14.3); LYMPHOCYTES # (AUTO) 1.7 K/uL (20.0-40.0); LYMPHOCYTES % (AUTO) 46.1 % (20.5-51.5); MEAN CORPUSCULAR HEMOGLOBIN 29.6 uug (24.7-32.8); MEAN CORPUSCULAR HGB CONC 34 g/dL (32.3-35.6); MEAN CORPUSCULAR VOLUME 87.8 fL (75.5-95.3); MONOCYTES # (AUTO) 0.2 K/uL (2.0-10.0); MONOCYTES % (AUTO) 6.9 % (0.0-11.0); NEUTROPHILS # (AUTO) 1.6 K/uL (1.8-8.9); NEUTROPHILS % (AUTO) 45.5 % (38.5-71.5); PLATELET COUNT (AUTO) 265 K/uL (179-408); RED BLOOD CELL COUNT(AUTO) 3.79 MIL/uL (3.63-4.92); WHITE BLOOD COUNT (AUTO) 3.6 K/uL (3.8-11.8)
[2018-09-10 22:55] LABS: CREATININE 0.6 mg/dL (0.6-1.3); POTASSIUM 3.8 mmol/L (3.5-5.1)
--- NOTE | 2018-09-10 23:00 | NUR ---
Pt provided urine sample, sent to lab.
[2018-09-10 23:01] LABS: BILIRUBIN,DIRECT 0.1 mg/dL (0.0-0.2); BILIRUBIN,TOTAL 0.4 mg/dL (0.2-1.0); TOTAL PROTEIN, SERUM 6.6 g/dL (6.4-8.2)
[2018-09-10 23:11] LABS: *BILIRUBIN,URIN NEGATIVE (NEGATIVE); *BLOOD, URINE NEGATIVE (NEGATIVE); *COLOR,URINE YELLOW (YELLOW); *KETONES,URINE NEGATIVE (NEGATIVE); *UROBILINOGEN,URINE 0.2 E.U./dl (NORMAL); LEUKOCYTE ESTERASE ,URINE NEGATIVE (NEGATIVE); NITRITE, URINE NEGATIVE (NEGATIVE); PH,URINE 7.5 (5.0-8.0); UGLUCOSE NEGATIVE (NEGATIVE)
[2018-09-10 23:32] LABS: *CLARITY,URINE CLEAR (CLEAR); *URINE HCG, QUAL NEGATIVE (NEGATIVE)
[2018-09-10 23:35] LABS: BACTERIA,URINE NONE SEEN /HPF (NONE SEEN); RBC,URINE 0-3 /HPF (0-3); SQUAMOUS EPITHELIAL CELL,UR FEW /HPF (NONE SEEN); WBC,URINE 0-3 /HPF (0-3)
--- NOTE | 2018-09-11 00:02 | NUR ---
Patient eloped from facility. Last seen 1. ER physician notified.
== END 2018-09-11 00:04 | disposition left against medical advice (07) ==
LOC: ER 22:00
DX: R53.1 Weakness (principal); M79.641 Pain in right hand; M79.642 Pain in left hand; M25.531 Pain in right wrist; M25.532 Pain in left wrist; G43.909 Migraine, unspecified, not intractable, without status migrainosus; F12.10 Cannabis abuse, uncomplicated; F17.200 Nicotine dependence, unspecified, uncomplicated; Z87.39 Personal history of other diseases of the musculoskeletal system and connective tissue; Z79.899 Other long term (current) drug therapy; Z88.8 Allergy status to other drugs, medicaments and biological substances
CPT/HCPCS: 36415; 84703; 85025; A4663

== ENCOUNTER 2018-11-05 18:36 | Emergency (ER) | payer MEDICAID, OTHER ==
[~2018-11-05] VITALS: Ht 152.4 cm; Wt 56.7 kg
[2018-11-05] MEDS ORDERED: IV NORMAL SALINE 1000 ML BAG IV ONE (19:45)
[2018-11-05] MEDS ORDERED: LEVOFLOXACIN 750 MG/D5W 150 ML PIGGYBACK IV ONE (19:45)
[2018-11-05] MEDS ORDERED: HYDROCODONE/APAP 5-325MG TABLET PO ONE (19:45)
[2018-11-05 19:46] LABS: WHITE BLOOD COUNT (AUTO) 5.7 K/uL (3.8-11.8)
[2018-11-05 19:47] LABS: BASOPHILS % (AUTO) 0.4 % (0.0-2.0); EOSINOPHILS # (AUTO) 0.2 K/uL (0.0-0.7); EOSINOPHILS % (AUTO) 2.9 % (0.0-7.0); HEMATOCRIT 34.3 % (31.2-41.9); HEMOGLOBIN 11.4 g/dL (10.9-14.3); LYMPHOCYTES # (AUTO) 1.5 K/uL (20.0-40.0); MEAN CORPUSCULAR HEMOGLOBIN 29.4 uug (24.7-32.8); MEAN CORPUSCULAR HGB CONC 33 g/dL (32.3-35.6); MEAN CORPUSCULAR VOLUME 88.3 fL (75.5-95.3); MONOCYTES # (AUTO) 0.3 K/uL (2.0-10.0); MONOCYTES % (AUTO) 6.1 % (0.0-11.0); NEUTROPHILS # (AUTO) 3.6 K/uL (1.8-8.9); NEUTROPHILS % (AUTO) 63.6 % (38.5-71.5); PLATELET COUNT (AUTO) 264 K/uL (179-408); RED BLOOD CELL COUNT(AUTO) 3.88 MIL/uL (3.63-4.92)
[2018-11-05 19:54] LABS: CREATININE 0.7 mg/dL (0.6-1.3); POTASSIUM 3.6 mmol/L (3.5-5.1)
[2018-11-05] MEDS ORDERED: HYDROCODONE/APAP 5-325MG TABLET ONE (19:56)
[2018-11-05] MEDS ORDERED: LEVOFLOXACIN 750MG/D5W 150 ML IV ONE (19:57)
[2018-11-05 20:00] LABS: BILIRUBIN,DIRECT 0.1 mg/dL (0.0-0.2); BILIRUBIN,TOTAL 0.2 mg/dL (0.2-1.0); TOTAL PROTEIN, SERUM 7.2 g/dL (6.4-8.2)
--- NOTE | 2018-11-05 20:00 | NUR ---
Xray at bedside.
--- NOTE | 2018-11-05 20:09 | NUR ---
Pt provided urine sample, sent to lab.
[2018-11-05 20:13] LABS: *URINE HCG, QUAL NEGATIVE (NEGATIVE)
[2018-11-05] MEDS ORDERED: KETOROLAC TROMETHAMINE 30 MG INJ ONE (20:37)
[2018-11-05] MEDS ORDERED: KETOROLAC TROMETHAMINE 30 MG INJ IVP ONE (20:45)
--- NOTE | 2018-11-05 21:32 | NUR ---
Patient discharged to home in stable conditon. Written and verbal after care instructions given. Patient verbalizes understanding of instructions. Pt ambulated out of ER with steady gait, no acute signs of distress, VSS, all belongings taken, IV site discontinued.
[2018-11-05 21:33] VITALS: BP 110/66
== END 2018-11-05 21:34 | disposition home or self-care (01) ==
LOC: ER 18:39
DX: J20.9 Acute bronchitis, unspecified (principal); F12.10 Cannabis abuse, uncomplicated; F17.200 Nicotine dependence, unspecified, uncomplicated; Z88.8 Allergy status to other drugs, medicaments and biological substances; Z79.899 Other long term (current) drug therapy
CPT/HCPCS: 36415; 71045; 80048; 80076; 84703; 85025; 87040 ×2; 87400; 96365; 96375; 99284; J1885; J1956; A4663; J7030

== ENCOUNTER 2018-12-28 17:44 | Emergency (ER) | payer OTHER ==
[~2018-12-28] VITALS: Ht 152.4 cm; Wt 56.7 kg
[2018-12-28] MEDS ORDERED: MYCO500T PO (18:11)
[2018-12-28] MEDS ORDERED: PRED20TA PO (18:11)
[2018-12-28] MEDS ORDERED: HYDR200T81 PO (18:11)
[2018-12-28] MEDS ORDERED: MORPHINE SULFATE 2 MG/1 ML DISP.SYRIN IV ONE (19:00)
[2018-12-28] MEDS ORDERED: ONDANSETRON 4 MG/2 ML VIAL IV ONE (19:00)
[2018-12-28] MEDS ORDERED: IV NORMAL SALINE 1000 ML BAG IV ONE (19:00)
[2018-12-28] MEDS ORDERED: PANTOPRAZOLE SODIUM 40 MG VIAL IV ONE (19:00)
[2018-12-28 19:13] LABS: BASOPHILS % (AUTO) 0.5 % (0.0-2.0); EOSINOPHILS % (AUTO) 0.5 % (0.0-7.0); HEMATOCRIT 32.3 % (31.2-41.9); HEMOGLOBIN 10.6 g/dL (10.9-14.3); LYMPHOCYTES # (AUTO) 1.6 K/uL (20.0-40.0); LYMPHOCYTES % (AUTO) 41.8 % (20.5-51.5); MEAN CORPUSCULAR HGB CONC 33 g/dL (32.3-35.6); MEAN CORPUSCULAR VOLUME 88.6 fL (75.5-95.3); MONOCYTES # (AUTO) 0.2 K/uL (2.0-10.0); MONOCYTES % (AUTO) 6.6 % (0.0-11.0); NEUTROPHILS # (AUTO) 1.9 K/uL (1.8-8.9); NEUTROPHILS % (AUTO) 50.6 % (38.5-71.5); PLATELET COUNT (AUTO) 229 K/uL (179-408); RED BLOOD CELL COUNT(AUTO) 3.64 MIL/uL (3.63-4.92); WHITE BLOOD COUNT (AUTO) 3.7 K/uL (3.8-11.8)
--- NOTE | 2018-12-28 19:15 | NUR ---
pt stated she has n/v and severe abd pain for 4 days denies uti, denies and denies mense comfort and safety maintained
[2018-12-28 19:23] LABS: CREATININE 0.7 mg/dL (0.6-1.3); POTASSIUM 3.7 mmol/L (3.5-5.1)
[2018-12-28 19:32] LABS: BILIRUBIN,DIRECT 0.1 mg/dL (0.0-0.2); BILIRUBIN,TOTAL 0.2 mg/dL (0.2-1.0); TOTAL PROTEIN, SERUM 6.3 g/dL (6.4-8.2)
[2018-12-28] MEDS ORDERED: PANTOPRAZOLE SODIUM 40 MG VIAL ONE (19:35)
[2018-12-28] MEDS ORDERED: ONDANSETRON 4 MG/2 ML VIAL ONE (19:35)
[2018-12-28] MEDS ORDERED: MORPHINE SULFATE 2 MG/1 ML DISP.SYRIN ONE (19:35)
[2018-12-28] MEDS ORDERED: MORPHINE SULFATE 4 MG/1 ML DISP.SYRIN IV ONE (20:00)
--- NOTE | 2018-12-28 20:00 | NUR ---
was med time one with protonix, zofran, morpine and normal saline meds teaching given denies allergies meds effective somewhat md informed
[2018-12-28] MEDS ORDERED: MORPHINE SULFATE 4 MG/1 ML DISP.SYRIN ONE (20:11)
--- NOTE | 2018-12-28 20:30 | NUR ---
was medicated again with morphine with effect urine specimen sent as order
[2018-12-28 20:40] LABS: *URINE HCG, QUAL NEGATIVE (NEGATIVE)
--- NOTE | 2018-12-28 20:45 | NUR ---
pt was discharge to home hl removed site wnl discharge teaching and prescription teaching given enc pt not to drive home overall appearances stable stated pain level zero at this time
[2018-12-28 21:27] VITALS: BP 112/62
== END 2018-12-28 20:45 | disposition home or self-care (01) ==
LOC: ER 17:45
DX: R11.10 Vomiting, unspecified (principal); R19.7 Diarrhea, unspecified; F17.200 Nicotine dependence, unspecified, uncomplicated; F12.10 Cannabis abuse, uncomplicated; Z88.8 Allergy status to other drugs, medicaments and biological substances; Z79.899 Other long term (current) drug therapy
CPT/HCPCS: 36415; 80048; 80076; 83690; 84703; 85025; 96374; 96375; 99283; C9113; J2270 ×2; J2405 ×2; A4663; J7030

== ENCOUNTER 2019-01-11 15:04 | Emergency (ER) | payer OTHER ==
[~2019-01-11] VITALS: Ht 152.4 cm; Wt 56.7 kg
[~2019-01-11 15:04] MED LIST changes: +HYDR200T81 PO; +MYCO500T PO; +PRED20TA PO; -PRED50TA PO
[2019-01-11] MEDS ORDERED: IV NORMAL SALINE 1000 ML BAG IV ONE (15:45)
[2019-01-11] MEDS ORDERED: ONDANSETRON 4 MG/2 ML VIAL IV ONE (15:45)
[2019-01-11] MEDS ORDERED: HYDROMORPHONE 1 MG/1 ML DISP.SYRIN IV ONE ×2 (15:45→17:15)
[2019-01-11] MEDS ORDERED: HYDROMORPHONE 1 MG/1 ML DISP.SYRIN ONE ×2 (15:48→17:19)
[2019-01-11 15:49] LABS: BASOPHILS % (AUTO) 0.2 % (0.0-2.0); EOSINOPHILS % (AUTO) 0.1 % (0.0-7.0); HEMATOCRIT 33.3 % (31.2-41.9); HEMOGLOBIN 10.9 g/dL (10.9-14.3); LYMPHOCYTES # (AUTO) 1.6 K/uL (20.0-40.0); LYMPHOCYTES % (AUTO) 39.4 % (20.5-51.5); MEAN CORPUSCULAR HEMOGLOBIN 28.4 uug (24.7-32.8); MEAN CORPUSCULAR HGB CONC 33 g/dL (32.3-35.6); MEAN CORPUSCULAR VOLUME 86.6 fL (75.5-95.3); MONOCYTES # (AUTO) 0.4 K/uL (2.0-10.0); MONOCYTES % (AUTO) 11.2 % (0.0-11.0); NEUTROPHILS % (AUTO) 49.1 % (38.5-71.5); PLATELET COUNT (AUTO) 244 K/uL (179-408); RED BLOOD CELL COUNT(AUTO) 3.84 MIL/uL (3.63-4.92)
[2019-01-11] MEDS ORDERED: ONDANSETRON 4 MG/2 ML VIAL ONE ×2 (15:49→17:19)
[2019-01-11 15:53] LABS: CREATININE 0.8 mg/dL (0.6-1.3); POTASSIUM 3.7 mmol/L (3.5-5.1)
[2019-01-11 16:00] LABS: BILIRUBIN,DIRECT 0.1 mg/dL (0.0-0.2); BILIRUBIN,TOTAL 0.5 mg/dL (0.2-1.0); TOTAL PROTEIN, SERUM 6.8 g/dL (6.4-8.2)
[2019-01-11] MEDS ORDERED: DEXAMETHASONE SOD PHOSPHATE 10 MG INJ ONE (16:24)
[2019-01-11] MEDS ORDERED: DEXAMETHASONE SOD PHOSPHATE 4 MG INJ IV ONE (16:30)
[2019-01-11] MEDS ORDERED: ONDANSETRON IV *ER 4 MG/2 ML VIAL IV ONE (17:15)
[2019-01-11 18:15] VITALS: BP 113/56
== END 2019-01-11 18:17 | disposition home or self-care (01) ==
LOC: ER 15:04
DX: M32.9 Systemic lupus erythematosus, unspecified (principal); R10.9 Unspecified abdominal pain; R11.0 Nausea; F17.200 Nicotine dependence, unspecified, uncomplicated; F12.10 Cannabis abuse, uncomplicated; Z88.8 Allergy status to other drugs, medicaments and biological substances; Z79.899 Other long term (current) drug therapy
CPT/HCPCS: 74176; 80048; 80076; 83690; 84702; 85025; 96374; 96375; 96376; 99284; J1100; J1170 ×2; J2405 ×2; 36415; A4663; J7030

== ENCOUNTER 2019-02-05 14:45 | Emergency (ER) | payer OTHER ==
[~2019-02-05] VITALS: Ht 152.4 cm; Wt 56.7 kg
[2019-02-05] MEDS ORDERED: OXYCODONE/APAP 5-325 MG TABLET PO ONE (15:45)
[2019-02-05] MEDS ORDERED: methylPREDNISolone SOD SUCC 125 MG/2 ML VIAL IV ONE (15:45)
[2019-02-05] MEDS ORDERED: TDAP DIPH,PERTUSS,TET VAC/PF 0.5 ML DISP.SYRIN IM ONE ×2 (15:45→16:06)
[2019-02-05] MEDS ORDERED: ONDANSETRON ODT 4 MG TAB.RAPDIS SL ONE (15:45)
[2019-02-05 15:59] LABS: BASOPHILS % (AUTO) 0.3 % (0.0-2.0); EOSINOPHILS % (AUTO) 0.8 % (0.0-7.0); HEMATOCRIT 31.3 % (31.2-41.9); HEMOGLOBIN 10.5 g/dL (10.9-14.3); LYMPHOCYTES # (AUTO) 1.8 K/uL (20.0-40.0); MEAN CORPUSCULAR HEMOGLOBIN 29.6 uug (24.7-32.8); MEAN CORPUSCULAR HGB CONC 34 g/dL (32.3-35.6); MEAN CORPUSCULAR VOLUME 88.2 fL (75.5-95.3); MONOCYTES # (AUTO) 0.3 K/uL (2.0-10.0); MONOCYTES % (AUTO) 6.6 % (0.0-11.0); NEUTROPHILS % (AUTO) 48.3 % (38.5-71.5); PLATELET COUNT (AUTO) 232 K/uL (179-408); RED BLOOD CELL COUNT(AUTO) 3.55 MIL/uL (3.63-4.92)
[2019-02-05] MEDS ORDERED: MORPHINE SULFATE 4 MG/1 ML DISP.SYRIN IV ONE (16:00)
[2019-02-05 16:02] LABS: CREATININE 0.6 mg/dL (0.6-1.3); POTASSIUM 3.6 mmol/L (3.5-5.1)
[2019-02-05] MEDS ORDERED: ONDANSETRON 4 MG/2 ML VIAL ONE (16:05)
[2019-02-05] MEDS ORDERED: MORPHINE SULFATE 4 MG/1 ML DISP.SYRIN ONE (16:05)
[2019-02-05] MEDS ORDERED: methylPREDNISolone SOD SUCC 125 MG/2 ML VIAL ONE (16:07)
[2019-02-05 16:08] LABS: BILIRUBIN,DIRECT 0.1 mg/dL (0.0-0.2); BILIRUBIN,TOTAL 0.4 mg/dL (0.2-1.0); TOTAL PROTEIN, SERUM 6.4 g/dL (6.4-8.2)
[2019-02-05] MEDS ORDERED: OXYCODONE/APAP 5-325 MG TABLET ONE (16:58)
[2019-02-05 18:09] LABS: *BILIRUBIN,URIN NEGATIVE (NEGATIVE); *BLOOD, URINE NEGATIVE (NEGATIVE); *CLARITY,URINE CLEAR (CLEAR); *COLOR,URINE LIGHT YELLOW (YELLOW); *KETONES,URINE NEGATIVE (NEGATIVE); *URINE HCG, QUAL NEGATIVE (NEGATIVE); *UROBILINOGEN,URINE 0.2 E.U./dl (NORMAL); LEUKOCYTE ESTERASE ,URINE NEGATIVE (NEGATIVE); NITRITE, URINE NEGATIVE (NEGATIVE); UGLUCOSE NEGATIVE (NEGATIVE)
[2019-02-05 18:23] VITALS: BP 116/78
== END 2019-02-05 18:24 | disposition home or self-care (01) ==
LOC: ER 14:45
DX: S06.0X0A Concussion without loss of consciousness, initial encounter (principal); S80.02XA Contusion of left knee, initial encounter; S80.01XA Contusion of right knee, initial encounter; F17.200 Nicotine dependence, unspecified, uncomplicated; F12.10 Cannabis abuse, uncomplicated; Z88.8 Allergy status to other drugs, medicaments and biological substances; Z79.899 Other long term (current) drug therapy; W10.8XXA Fall (on) (from) other stairs and steps, initial encounter; Y93.89 Activity, other specified; Y92.89 Other specified places as the place of occurrence of the external cause; Y99.8 Other external cause status
CPT/HCPCS: 36415; 70450; 80048; 80076; 81001; 82550; 84703; 85025; 90471; 90715; 96374; 96375; 99284; J2270; J2405; J2930; A4663

== ENCOUNTER 2019-02-23 15:06 | Emergency (ER) | payer OTHER ==
[~2019-02-23] VITALS: Ht 162.6 cm; Wt 52.6 kg
[2019-02-23] MEDS ORDERED: DEXAMETHASONE SOD PHOSPHATE 10 MG INJ ONE (15:29)
[2019-02-23] MEDS ORDERED: ONDANSETRON 4 MG/2 ML VIAL ONE (15:29)
[2019-02-23] MEDS ORDERED: HYDROMORPHONE 2 MG/1 ML DISP.SYRIN ONE (15:29)
[2019-02-23] MEDS ORDERED: DEXAMETHASONE SOD PHOSPHATE 4 MG INJ IV ONE (15:30)
[2019-02-23] MEDS ORDERED: HYDROMORPHONE 1 MG/1 ML DISP.SYRIN IV ONE (15:30)
[2019-02-23] MEDS ORDERED: ONDANSETRON 4 MG/2 ML VIAL IV ONE (15:30)
[2019-02-23] MEDS ORDERED: IV NORMAL SALINE 1000 ML BAG IV ONE (15:30)
[2019-02-23 16:46] VITALS: BP 108/67
--- NOTE | 2019-02-23 16:47 | NUR ---
IV removed. Catheter intact and site benign. Pressure and 4x4 gauze applied to site. No bleeding noted.
--- NOTE | 2019-02-23 16:48 | NUR ---
Patient discharged to home in stable conditon. Written and verbal after care instructions given. Patient verbalizes understanding of instructions.
== END 2019-02-23 16:48 | disposition home or self-care (01) ==
LOC: ER 15:06
DX: M32.9 Systemic lupus erythematosus, unspecified (principal); G43.909 Migraine, unspecified, not intractable, without status migrainosus; F17.200 Nicotine dependence, unspecified, uncomplicated; F12.10 Cannabis abuse, uncomplicated; Z88.8 Allergy status to other drugs, medicaments and biological substances; Z79.899 Other long term (current) drug therapy
CPT/HCPCS: 96374; 96375; 99283; J1100; J1170; J2405; A4663; J7030

== ENCOUNTER 2019-03-11 14:52 | Emergency (ER) | payer OTHER ==
[~2019-03-11] VITALS: Ht 162.6 cm; Wt 52.6 kg
[2019-03-11] MEDS ORDERED: IV NORMAL SALINE 1000 ML BAG IV ONE ×2 (15:30)
[2019-03-11] MEDS ORDERED: methylPREDNISolone SOD SUCC 125 MG/2 ML VIAL IV ONE (15:30)
[2019-03-11] MEDS ORDERED: MORPHINE SULFATE 2 MG/1 ML DISP.SYRIN IV ONE ×2 (15:30→17:00)
[2019-03-11 15:31] LABS: BASOPHILS % (AUTO) 0.4 % (0.0-2.0); EOSINOPHILS % (AUTO) 0.3 % (0.0-7.0); HEMATOCRIT 35.4 % (31.2-41.9); HEMOGLOBIN 11.7 g/dL (10.9-14.3); LYMPHOCYTES # (AUTO) 1.9 K/uL (20.0-40.0); LYMPHOCYTES % (AUTO) 36.1 % (20.5-51.5); MEAN CORPUSCULAR HEMOGLOBIN 30.1 uug (24.7-32.8); MEAN CORPUSCULAR HGB CONC 33 g/dL (32.3-35.6); MEAN CORPUSCULAR VOLUME 91.3 fL (75.5-95.3); MONOCYTES # (AUTO) 0.4 K/uL (2.0-10.0); MONOCYTES % (AUTO) 7.3 % (0.0-11.0); NEUTROPHILS # (AUTO) 2.9 K/uL (1.8-8.9); NEUTROPHILS % (AUTO) 55.9 % (38.5-71.5); PLATELET COUNT (AUTO) 273 K/uL (179-408); RED BLOOD CELL COUNT(AUTO) 3.87 MIL/uL (3.63-4.92); WHITE BLOOD COUNT (AUTO) 5.3 K/uL (3.8-11.8)
[2019-03-11] MEDS ORDERED: methylPREDNISolone SOD SUCC 125 MG/2 ML VIAL ONE (15:31)
[2019-03-11] MEDS ORDERED: MORPHINE SULFATE 2 MG/1 ML DISP.SYRIN ONE ×2 (15:32→17:03)
[2019-03-11 15:37] LABS: *BILIRUBIN,URIN NEGATIVE (NEGATIVE); *BLOOD, URINE NEGATIVE (NEGATIVE); *CLARITY,URINE CLEAR (CLEAR); *COLOR,URINE YELLOW (YELLOW); *KETONES,URINE NEGATIVE (NEGATIVE); *UROBILINOGEN,URINE 0.2 E.U./dl (NORMAL); LEUKOCYTE ESTERASE ,URINE NEGATIVE (NEGATIVE); NITRITE, URINE NEGATIVE (NEGATIVE); UGLUCOSE NEGATIVE (NEGATIVE)
[2019-03-11 15:38] LABS: CREATININE 0.7 mg/dL (0.6-1.3); POTASSIUM 3.8 mmol/L (3.5-5.1)
[2019-03-11 15:44] LABS: BILIRUBIN,DIRECT 0.1 mg/dL (0.0-0.2); BILIRUBIN,TOTAL 0.4 mg/dL (0.2-1.0); TOTAL PROTEIN, SERUM 6.8 g/dL (6.4-8.2)
--- NOTE | 2019-03-11 17:05 | NUR ---
IV removed. Catheter intact and site benign. Pressure and 4x4 gauze applied to site. No bleeding noted.
[2019-03-11 17:06] VITALS: BP 110/73
--- NOTE | 2019-03-11 17:06 | NUR ---
Patient discharged to home in stable conditon. Written and verbal after care instructions given. Patient verbalizes understanding of instructions. Stressed follow up with pmd.
== END 2019-03-11 17:16 | disposition home or self-care (01) ==
LOC: ER 14:52
DX: G43.909 Migraine, unspecified, not intractable, without status migrainosus (principal); F17.200 Nicotine dependence, unspecified, uncomplicated; F12.10 Cannabis abuse, uncomplicated; Z88.8 Allergy status to other drugs, medicaments and biological substances; Z79.899 Other long term (current) drug therapy
CPT/HCPCS: 36415; 80048; 80076; 81001; 85025; 87086; 96374; 96375; 96376; 99283; J2270 ×2; J2930; A4663; J7030

== ENCOUNTER 2019-04-08 09:28 | Emergency (ER) | payer OTHER ==
[~2019-04-08] VITALS: Ht 172.7 cm; Wt 56.7 kg
--- NOTE | 2019-04-08 09:41 | NUR ---
KRAIG HUMPHREY AT BEDSIDE FOR MSE.
[2019-04-08 09:54] LABS: BASOPHILS % (AUTO) 0.4 % (0.0-2.0); EOSINOPHILS % (AUTO) 0.7 % (0.0-7.0); HEMATOCRIT 36.5 % (31.2-41.9); LYMPHOCYTES # (AUTO) 1.8 K/uL (20.0-40.0); LYMPHOCYTES % (AUTO) 28.4 % (20.5-51.5); MEAN CORPUSCULAR HEMOGLOBIN 30.2 uug (24.7-32.8); MEAN CORPUSCULAR HGB CONC 33 g/dL (32.3-35.6); MONOCYTES # (AUTO) 0.5 K/uL (2.0-10.0); MONOCYTES % (AUTO) 7.7 % (0.0-11.0); NEUTROPHILS # (AUTO) 3.9 K/uL (1.8-8.9); NEUTROPHILS % (AUTO) 62.8 % (38.5-71.5); PLATELET COUNT (AUTO) 275 K/uL (179-408); RED BLOOD CELL COUNT(AUTO) 3.96 MIL/uL (3.63-4.92); WHITE BLOOD COUNT (AUTO) 6.3 K/uL (3.8-11.8)
[2019-04-08] MEDS ORDERED: METOCLOPRAMIDE HCL 10 MG/2 ML VIAL ONE (09:56)
[2019-04-08] MEDS ORDERED: ACETAMINOPHEN ES 500 MG TABLET ONE (09:56)
[2019-04-08] MEDS ORDERED: predniSONE 20 MG TABLET ONE (09:56)
[2019-04-08 10:01] LABS: CREATININE 0.8 mg/dL (0.6-1.3); POTASSIUM 3.5 mmol/L (3.5-5.1)
[2019-04-08] MEDS ORDERED: methylPREDNISolone SOD SUCC 40 MG/ML VIAL ONE (10:09)
[2019-04-08] MEDS: METOCLOPRAMIDE HCL 10 MG/2 ML VIAL IV ONE (10:14)
[2019-04-08] MEDS: methylPREDNISolone SOD SUCC 40 MG/ML VIAL IV ONE (10:17)
[2019-04-08] MEDS: predniSONE 20 MG TABLET PO ONE (10:18)
[2019-04-08] MEDS: ACETAMINOPHEN ES 500 MG TABLET PO ONE (10:18)
[2019-04-08] MEDS: IV NORMAL SALINE 1000 ML BAG IV ONE (10:18)
--- NOTE | 2019-04-08 10:49 | NUR ---
Patient discharged to home in stable conditon. Written and verbal after care instructions given. Patient verbalizes understanding of instructions. ALL BELONGINGS W/ PT. PT SELF-AMBULATED W/O DIFFICULTY. 20G IV ACCESS IN LAC REMOVED PRIOR TO D/C - INNER CANNULA INTACT.
[2019-04-08 10:50] VITALS: BP 111/71
== END 2019-04-08 10:51 | disposition home or self-care (01) ==
LOC: ER 09:29
DX: J06.9 Acute upper respiratory infection, unspecified (principal); R51 Headache; M32.9 Systemic lupus erythematosus, unspecified; G89.4 Chronic pain syndrome; F17.200 Nicotine dependence, unspecified, uncomplicated; F12.10 Cannabis abuse, uncomplicated; Z88.8 Allergy status to other drugs, medicaments and biological substances; Z79.899 Other long term (current) drug therapy
CPT/HCPCS: 36415; 71045; 80048; 85025; 96374; 96375; 99284; J2765; J2920; A4663; A9150; J7030; J7512

== ENCOUNTER 2019-08-11 12:10 | Emergency (ER) | payer OTHER ==
[~2019-08-11] VITALS: Ht 152.4 cm; Wt 57.2 kg
[2019-08-11] MEDS ORDERED: IBUPROFEN 600 MG TABLET PO ONE (12:30)
[2019-08-11] MEDS ORDERED: ACETAMINOPHEN 325 MG TABLET PO ONE (12:30)
[2019-08-11] MEDS ORDERED: IV NORMAL SALINE 1000 ML BAG IV ONE (12:30)
[2019-08-11] MEDS ORDERED: ACETAMINOPHEN ES 500 MG TABLET ONE (12:51)
[2019-08-11] MEDS ORDERED: IBUPROFEN 600 MG TABLET ONE (12:51)
[2019-08-11 13:13] LABS: CREATININE 0.7 mg/dL (0.6-1.3); POTASSIUM 3.5 mmol/L (3.5-5.1)
[2019-08-11 13:14] LABS: BASOPHILS % (AUTO) 0.2 % (0.0-2.0); EOSINOPHILS % (AUTO) 0.1 % (0.0-7.0); HEMATOCRIT 32.8 % (31.2-41.9); HEMOGLOBIN 11.2 g/dL (10.9-14.3); LYMPHOCYTES # (AUTO) 0.3 K/uL (20.0-40.0); LYMPHOCYTES % (AUTO) 10.2 % (20.5-51.5); MEAN CORPUSCULAR HGB CONC 34 g/dL (32.3-35.6); MEAN CORPUSCULAR VOLUME 93.9 fL (75.5-95.3); MONOCYTES # (AUTO) 0.4 K/uL (2.0-10.0); MONOCYTES % (AUTO) 13.4 % (0.0-11.0); NEUTROPHILS # (AUTO) 2.5 K/uL (1.8-8.9); NEUTROPHILS % (AUTO) 76.1 % (38.5-71.5); PLATELET COUNT (AUTO) 245 K/uL (179-408); RED BLOOD CELL COUNT(AUTO) 3.49 MIL/uL (3.63-4.92)
[2019-08-11 13:18] LABS: WHITE BLOOD COUNT (AUTO) 3.3 K/uL (3.8-11.8)
[2019-08-11 13:19] LABS: BILIRUBIN,DIRECT 0.1 mg/dL (0.0-0.2); BILIRUBIN,TOTAL 0.5 mg/dL (0.2-1.0); TOTAL PROTEIN, SERUM 6.9 g/dL (6.4-8.2)
[2019-08-11] MEDS ORDERED: MORPHINE SULFATE 4 MG/1 ML DISP.SYRIN IM ONE (13:30)
[2019-08-11] MEDS ORDERED: MORPHINE SULFATE 4 MG/1 ML DISP.SYRIN ONE (13:31)
[2019-08-11] MEDS ORDERED: METOCLOPRAMIDE HCL 10 MG/2 ML VIAL ONE (13:36)
[2019-08-11] MEDS ORDERED: OSELTAMIVIR PHOSPHATE 75 MG CAPSULE ONE (13:39)
[2019-08-11] MEDS ORDERED: OSELTAMIVIR PHOSPHATE 75 MG CAPSULE PO ONE (13:45)
[2019-08-11] MEDS ORDERED: METOCLOPRAMIDE HCL 10 MG/2 ML VIAL IV ONE (13:45)
--- NOTE | 2019-08-11 13:50 | NUR ---
Patient discharged to home in stable conditon. Written and verbal after care instructions given. Patient verbalizes understanding of instructions. IV removed. Catheter intact and site benign. Pressure and 4x4 gauze applied to site. No bleeding noted. Patient ambulated with stable gait. Stated that her mother will be driving her home.
[2019-08-11 14:09] VITALS: BP 119/79
== END 2019-08-11 13:40 | disposition home or self-care (01) ==
LOC: ER 12:10
DX: J10.1 Influenza due to other identified influenza virus with other respiratory manifestations (principal); G43.909 Migraine, unspecified, not intractable, without status migrainosus; M60.9 Myositis, unspecified; F10.10 Alcohol abuse, uncomplicated; F17.200 Nicotine dependence, unspecified, uncomplicated; F12.10 Cannabis abuse, uncomplicated; G89.29 Other chronic pain; Z60.2 Problems related to living alone; Z79.899 Other long term (current) drug therapy; Z88.6 Allergy status to analgesic agent
CPT/HCPCS: 71045; 80048; 80076; 83605; 84702; 85025; 87040 ×2; 87400; 96372; 96374; 99284; J2270; J2765; A4663; A9150; J7030

== ENCOUNTER 2020-01-04 18:59 | Emergency (ER) | payer OTHER ==
[~2020-01-04] VITALS: Ht 152.4 cm; Wt 56.7 kg
[~2020-01-04 18:59] MED LIST changes: -PRED20TA PO
[2020-01-04] MEDS ORDERED: PRED20TA PO (19:10)
--- NOTE | 2020-01-04 19:13 | NUR ---
Dr. Reynolds at bedside for MSE.
[2020-01-04] MEDS ORDERED: ONDANSETRON 4 MG/2 ML VIAL ONE (19:26)
[2020-01-04] MEDS ORDERED: METOCLOPRAMIDE HCL 10 MG/2 ML VIAL ONE (19:26)
[2020-01-04] MEDS ORDERED: HYDROMORPHONE HCL 2 MG TABLET ONE ×2 (19:27→21:20)
[2020-01-04] MEDS ORDERED: METOCLOPRAMIDE HCL 10 MG/2 ML VIAL IV ONE (19:30)
[2020-01-04] MEDS ORDERED: HYDROMORPHONE HCL 2 MG TABLET PO ONE ×2 (19:30→21:15)
[2020-01-04] MEDS ORDERED: ONDANSETRON 4 MG/2 ML VIAL IV ONE (19:30)
[2020-01-04 19:45] LABS: BASOPHILS % (AUTO) 0.4 % (0.0-2.0); EOSINOPHILS % (AUTO) 0.7 % (0.0-7.0); HEMATOCRIT 37.4 % (31.2-41.9); HEMOGLOBIN 12.4 g/dL (10.9-14.3); LYMPHOCYTES # (AUTO) 1.5 K/uL (20.0-40.0); LYMPHOCYTES % (AUTO) 46.6 % (20.5-51.5); MEAN CORPUSCULAR HEMOGLOBIN 30.7 uug (24.7-32.8); MEAN CORPUSCULAR HGB CONC 33 g/dL (32.3-35.6); MEAN CORPUSCULAR VOLUME 92.4 fL (75.5-95.3); MONOCYTES # (AUTO) 0.3 K/uL (2.0-10.0); MONOCYTES % (AUTO) 9.8 % (0.0-11.0); NEUTROPHILS # (AUTO) 1.4 K/uL (1.8-8.9); NEUTROPHILS % (AUTO) 42.5 % (38.5-71.5); PLATELET COUNT (AUTO) 269 K/uL (179-408); RED BLOOD CELL COUNT(AUTO) 4.05 MIL/uL (3.63-4.92); WHITE BLOOD COUNT (AUTO) 3.2 K/uL (3.8-11.8)
[2020-01-04 19:56] LABS: BILIRUBIN,DIRECT 0.1 mg/dL (0.0-0.2); BILIRUBIN,TOTAL 0.3 mg/dL (0.2-1.0); CREATININE 0.8 mg/dL (0.6-1.3); POTASSIUM 3.7 mmol/L (3.5-5.1); TOTAL PROTEIN, SERUM 7.2 g/dL (6.4-8.2)
--- NOTE | 2020-01-04 20:18 | NUR ---
Ultrasound at bedside.
[2020-01-04] MEDS ORDERED: SWABABLE VALVE TRANSFER SET EA MC ONE (20:24)
[2020-01-04] MEDS ORDERED: IOHEXOL 300MG/ML 100 ML INFUS..BTL ONE (20:25)
[2020-01-04] MEDS ORDERED: IV NORMAL SALINE 250 ML IV ONE (20:25)
--- NOTE | 2020-01-04 20:39 | NUR ---
Pt out of ER for CT.
--- NOTE | 2020-01-04 20:59 | NUR ---
PT back to ER from CT.
[2020-01-04 22:36] VITALS: BP 110/80
--- NOTE | 2020-01-04 22:36 | NUR ---
Patient discharged to home in stable condition. Written and verbal after care instructions given. Patient verbalizes understanding of instructions. Stressed follow up or return to ER for worsening s/s. Pt ambulated out of ER with steady gait, no acute signs of distress, VSS, all belongings taken, IV site discontinued.
== END 2020-01-04 22:43 | disposition home or self-care (01) ==
LOC: ER 19:07
DX: R10.13 Epigastric pain (principal); R11.2 Nausea with vomiting, unspecified; G89.4 Chronic pain syndrome; R19.7 Diarrhea, unspecified; M32.9 Systemic lupus erythematosus, unspecified; M06.9 Rheumatoid arthritis, unspecified; F17.290 Nicotine dependence, other tobacco product, uncomplicated
CPT/HCPCS: 36415; 71045; 74177; 76705; 80048; 80076; 83690; 84702; 85025; 85651; 85730; 86140; 93005; 96374; 96375; 99285; J2405; J2765; Q9967; J7050

== ENCOUNTER 2020-05-01 01:20 | Emergency (ER) | payer OTHER ==
[~2020-05-01] VITALS: Ht 152.4 cm; Wt 56.7 kg
[~2020-05-01 01:20] MED LIST changes: +PRED20TA PO
--- NOTE | 2020-05-01 01:35 | NUR ---
Dr. Reynolds at bedside for MSE
--- NOTE | 2020-05-01 01:55 | NUR ---
Patient discharged to home in stable condition. Written and verbal after care instructions given. Patient verbalizes understanding of instructions. Stressed follow up or return to ER for worsening s/s. Patient ambulated with steady gait. NAD noted
[2020-05-01 01:59] VITALS: BP 114/63
--- NOTE | 2020-05-01 20:54 | NUR ---
discussed with patient that she remains COVID POSITIVE. should be cleared by infectious disease doctor given her medical problems
== END 2020-05-01 01:55 | disposition home or self-care (01) ==
LOC: ER 01:20
DX: U07.1 COVID-19 (principal); G89.4 Chronic pain syndrome; M06.9 Rheumatoid arthritis, unspecified; M32.9 Systemic lupus erythematosus, unspecified; Z79.52 Long term (current) use of systemic steroids
CPT/HCPCS: 71045; 99284; U0003 ×2; A4663

== ENCOUNTER 2021-01-24 18:45 | Emergency (ER) | payer OTHER ==
--- NOTE | 2021-01-24 19:25 | NUR ---
PATIENT WENT UP TO REGISTRATION WINDOW AND STATED "I DON'T WANT TO BE SEEN ANYMORE. I AM LEAVING." PATIENT LEFT WITHOUT BEING SEEN OR TRIAGED.
== END 2021-01-24 19:32 | disposition left against medical advice (07) ==
LOC: ER 18:47
DX: Z53.21 Procedure and treatment not carried out due to patient leaving prior to being seen by health care provider (principal)